=== PATIENT | female | born 1955 | race Caucasian/White ===

== ENCOUNTER 2017-02-13 21:17 | Emergency (ER) | payer OTHER, MEDICAID ==
[~2017-02-13] VITALS: Ht 165.1 cm; Wt 65.0 kg
[~2017-02-13 21:17] MED LIST: 1-ME1LIQ PO; ASPI81TA82 PO; ATEN-102 PO; BACT800T5 PO; BUPR300T PO; CYMB60CA PO; PRAV80 PO
[2017-02-13 21:21] VITALS: BP 122/69; PULSE 112; RESP 24; TEMP 98.3; O2SAT 98
[2017-02-13] MEDS ORDERED: LIPI10TA PO (21:30)
[2017-02-13] MEDS ORDERED: ATEN100T PO (21:30)
[2017-02-13] MEDS ORDERED: LORazepam 2 MG/ML VIAL IV PUSH ONE ×2 (21:30→23:00)
[2017-02-13] MEDS ORDERED: ASPI-110 PO (21:30)
[2017-02-13] MEDS ORDERED: CYMB60CA PO (21:30)
[2017-02-13] MEDS ORDERED: ASPIRIN 81 MG CHEW TAB PO ONE (21:30)
[2017-02-13] MEDS ORDERED: SODIUM CHLORIDE 0.9% FLUSH 10 ML FLUSH IVF PRN (21:30)
[2017-02-13] MEDS ORDERED: SODIUM CHLORID 0.9% 500 ML INJ 500 ML IV ONE (21:30)
[2017-02-13] MEDS ORDERED: SODIUM CHLOR 0.9% 1000 ML INJ 1,000 ML IV ONE ×2 (21:30→22:45)
[2017-02-13] MEDS ORDERED: WELLTAB39 PO (21:30)
[2017-02-13] MEDS ORDERED: AMLO10 PO (21:30)
--- NOTE | 2017-02-13 21:47 | PD ---
HPI Chief Complaint: Cardiac Complaint Time Seen by Provider: 21:21 Travel History International Travel<30 days: No Contact w/Intl Traveler<30days: No Traveled to known affect area: No History of Present Illness HPI 61-year-old female came to the emergency room with history of palpitations after binging on crack cocaine for past couple days. Patient has also been drinking alcohol. She rents a room and says that her landlady does not turn the air-conditioner on. Patient says she is very hot and she has been very depressed. She has been clean for some time and relapsed recently. She was tachycardic upon arrival. She was brought in by EMS and they're twelve-lead EKG was within normal limits as per them. Patient is not complaining of any chest pain. She has been urging to be admitted from the time she came in. She also mentioned to the paramedics that she wants to be admitted since she cannot go back to living at the same place. She is able to give her history appropriately. [facility]LY [facility] Past Medical History Narrative Medical List of her past medical, surgical, social and family history is reviewed from the nursing note. Hx Anticoagulant Therapy: Yes (81 MG ASA) Anxiety: Yes Depression: Yes Cardiovascular Problems: Yes (HTN) High Cholesterol: Yes Diminished Hearing: No Hypertension: Yes Musculoskeletal: Yes (LEG PAIN) Immunizations Current: Yes Tetanus Vaccination: Unknown ?: Not Menopausal: Yes Past Surgical History Abdominal Surgery: Yes Appendectomy: Yes Cardiac Surgery: Yes (aorta BYPASS) Tonsillectomy: Yes Other Surgery: Yes Social History Alcohol Use: Yes Tobacco Use: Yes (1 PPD) Substance Use: Yes Allergies-Medications (Allergen,Severity, Reaction): Coded Allergies: No Known Allergies (Unverified , 02/13/17) Comments No known drug allergies. Reported Meds & Prescriptions Reported Meds & Active Scripts Active Reported Aspirin 81 (Aspirin) 81 Mg Tabdr 81 Mg PO DAILY Wellbutrin Xl 24 HR (Bupropion HCl) 300 Mg Tab 300 Mg PO DAILY Cymbalta DR (Duloxetine HCl) 60 Mg Capdr 60 Mg PO DAILY Lipitor (Atorvastatin Calcium) 10 Mg Tab 10 Mg PO HS Norvasc (Amlodipine Besylate) 10 Mg Tab 10 Mg PO DAILY Atenolol 100 Mg Tab 100 Mg PO DAILY Narrative Medication List of her home medications reviewed from the nursing note. Review of Systems Except as stated in HPI: all other systems reviewed are Neg Physical Exam Narrative GENERAL: Awake, alert, disheveled, anxious, mild distress SKIN: Focused skin assessment warm/dry. HEAD: Atraumatic. Normocephalic. EYES: Pupils equal and round. No scleral icterus. No injection or drainage. ENT: No nasal bleeding or discharge. Mucous membranes pink and moist. NECK: Trachea midline. No JVD. CARDIOVASCULAR: Regular rate and rhythm. Tachycardia. No murmur appreciated. RESPIRATORY: No accessory muscle use. Clear to auscultation. Breath sounds equal bilaterally. GASTROINTESTINAL: Abdomen soft, non-tender, nondistended. Hepatic and splenic margins not palpable. MUSCULOSKELETAL: No obvious deformities. No clubbing. No cyanosis. No edema. NEUROLOGICAL: Awake and alert. No obvious cranial nerve deficits. Motor grossly within normal limits. Normal speech. PSYCHIATRIC: Appropriate mood and affect; insight and judgment normal. Data Data Last Documented VS Vital Signs Date Time Temp Pulse Resp B/P (MAP) Pulse Ox O2 Delivery O2 Flow Rate FiO2 02/14/17 05:06 99 18 108/68 (81) 96 02/13/17 23:12 Room Air 02/13/17 21:21 98.3 Orders Orders Electrocardiogram (02/13/17 21:25) Basic Metabolic Panel (Bmp) (02/13/17 21:25) Ckmb (Isoenzyme) Profile (02/13/17 21:25) Complete Blood Count With Diff (02/13/17 21:25) Magnesium (Mg) (02/13/17 21:25) Prothrombin Time / Inr (Pt) (02/13/17 21:25) Act Partial Throm Time (Ptt) (02/13/17 21:25) Troponin I (02/13/17 21:25) Chest, Single Ap (02/13/17 21:25) Ecg Monitoring (02/13/17 21:25) Bilateral Bp Monitoring (02/13/17 21:25) Iv Access Insert/Monitor (02/13/17 21:25) Oximetry (02/13/17 21:25) Oxygen Administration (02/13/17 21:25) Aspirin Chew (Aspirin Chew) (02/13/17 21:30) Sodium Chloride 0.9% Flush (Ns Flush) (02/13/17 21:30) Sodium Chlorid 0.9% 500 Ml Inj (Ns 500 M (02/13/17 21:30) Lorazepam Inj (Ativan Inj) (02/13/17 21:30) Sodium Chlor 0.9% 1000 Ml Inj (Ns 1000 M (02/13/17 21:30) Sodium Chlor 0.9% 1000 Ml Inj (Ns 1000 M (02/13/17 22:45) Lorazepam Inj (Ativan Inj) (02/13/17 23:00) Potassium Chlor 20 Meq Premix (Kcl 20 Me (02/14/17 01:30) Potassium Chloride (Kcl) (02/14/17 01:30) Troponin I (02/14/17 03:30) Potassium, Serum (K) (02/14/17 03:30) Labs Laboratory Tests Test 02/13/17 21:45 02/14/17 00:15 02/14/17 03:45 White Blood Count 11.6 TH/MM3 Red Blood Count 5.84 MIL/MM3 Hemoglobin 16.7 GM/DL Hematocrit 48.7 % Mean Corpuscular Volume 83.4 FL Mean Corpuscular Hemoglobin 28.5 PG Mean Corpuscular Hemoglobin Concent 34.2 % Red Cell Distribution Width 16.6 % Platelet Count 262 TH/MM3 Mean Platelet Volume 8.0 FL Neutrophils (%) (Auto) 63.7 % Lymphocytes (%) (Auto) 23.5 % Monocytes (%) (Auto) 12.0 % Eosinophils (%) (Auto) 0.5 % Basophils (%) (Auto) 0.3 % Neutrophils # (Auto) 7.4 TH/MM3 Lymphocytes # (Auto) 2.7 TH/MM3 Monocytes # (Auto) 1.4 TH/MM3 Eosinophils # (Auto) 0.1 TH/MM3 Basophils # (Auto) 0.0 TH/MM3 CBC Comment DIFF FINAL Differential Comment Prothrombin Time 10.2 SEC Prothromb Time International Ratio 0.9 RATIO Activated Partial Thromboplast Time 26.4 SEC Blood Urea Nitrogen 7 MG/DL Creatinine 0.91 MG/DL Random Glucose 97 MG/DL Calcium Level 8.5 MG/DL Magnesium Level 1.7 MG/DL Sodium Level 136 MEQ/L Potassium Level 2.6 MEQ/L 5.2 MEQ/L Chloride Level 98 MEQ/L Carbon Dioxide Level 27.2 MEQ/L Anion Gap 11 MEQ/L Estimat Glomerular Filtration Rate 63 ML/MIN Total Creatine Kinase 40 U/L Troponin I 0.02 NG/ML 0.02 NG/ML MDM Medical Decision Making Medical Screen Exam Complete: Yes Emergency Medical Condition: Yes Medical Record Reviewed: Yes Interpretation(s) Twelve-lead EKG was reviewed by me. Normal sinus rhythm, normal axis, nonspecific ST-T wave changes. Heart rate of 101 bpm. Differential Diagnosis Cocaine induced chest pain and palpitations, dehydration, electrolyte abnormality or ACS Narrative Course 10:54 PM patient was given IV fluid bolus and IV Ativan 1 mg. CBC is back and hemoglobin is 15 which is suggestive of hemoconcentration. I've ordered another liter of IV fluid bolus. Fact that she has been binging on crack and not eating or drinking for past few days and living in a hot environment would make her prone to dehydration. Awaiting for the chemistry. Chest x-rays within normal limit. 11 PM I just reassessed the patient and she still continues to be jittery and shaky and tachycardic. I've given another milligram of IV Ativan. 12:23 AM awaiting for the chemistry results. It was a recollect. 4:39 AM patient was hypokalemic and she was given potassium replacement. Repeat potassium and a repeat troponin was sent and they're within normal limits. Patient will be discharged home. Current heart rate is in the 90s. Critical Care Narrative Aggregate critical care time was 45 minutes. Time to perform other separately billable procedures was not included in the critical care time. My time did not include minutes spent treating any other patients simultaneously or on activities that did not directly contribute to the patient's treatment. The services I provided to this patient were to treat and/or prevent clinically significant deterioration that could result in: Moderate to severe Hypokalemia, hypokalemia correction, severe dehydration I provided critical care services requiring my management, as noted below: Chart data review, documentation time, medication orders and management, vital sign assessments/reviewing monitor data, ordering and reviewing lab tests, ordering and interpreting/reviewing x-rays and diagnostic studies, care of the patient and discussion of the patient with the admitting physicians. Procedures EKG Prior to Arrival: Yes Diagnosis Primary Impression: Cocaine abuse, binge pattern Additional Impressions: cocaine-induced palpitations Dehydration Hypokalemia Referrals: Primary Care Physician Additional Instructions: Should not be abusing cocaine or crack cocaine since they are dangerous for your health. Drink lots of fluid to keep himself hydrated. She turned to the ER if the condition worsens or any other new concerns. Follow-up with your primary care. Med/Other Pt SpecificInfo: No Change to Meds Disposition: 01 DISCHARGE HOME Condition: Stable Gregory Vila MD Feb 13, 2017 21:47
[2017-02-13 22:00] VITALS: BP 103/71; PULSE 112; RESP 18; O2SAT 96
--- NOTE | 2017-02-13 22:05 | RADRPT ---
EXAM DATE/TIME: 02/13/2017 21:41 [facility] COMPARISON: No previous studies available for comparison. INDICATIONS : Chest pain. MEDICAL HISTORY : None. SURGICAL HISTORY : None. 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 Previous stent noted in the distal thoracic aorta. Multiple surgical clips overlying upper right chest. Basal atelectasis or scarring. CONCLUSION: 1. Tubular calcification presumably in the descending aneurysmal thoracic aorta with previous stent g raft. No focal consolidation or effusion. Syd Isabel MD on February 13, 2017 at 22:01 Board Certified Radiologist. This report was verified electronically.
[2017-02-13 22:06] LABS: AUTOMATED NEUTROPHIL # 7.4 TH/MM3 (1.8-7.7); BASOPHIL % 0.3 % (0.0-2.0); EOSINOPHIL # 0.1 TH/MM3 (0-0.4); EOSINOPHIL % 0.5 % (0.0-4.0); HEMATOCRIT 48.7 % (35.0-46.0); HEMO FLAGS DIFF FINAL; LYMPH % 23.5 % (9.0-44.0); LYMPHOCYTE # 2.7 TH/MM3 (1.0-4.8); MEAN CELL VOLUME 83.4 FL (80.0-100.0); MEAN CORPUSCULAR HEMOGLOBIN 28.5 PG (27.0-34.0); MEAN CORPUSCULAR HGB CONC 34.2 % (32.0-36.0); NEUT % 63.7 % (16.0-70.0); PLATELET COUNT 262 TH/MM3 (150-450); RED BLOOD COUNT 5.84 MIL/MM3 (4.00-5.30); RED CELL DISTRIBUTION WIDTH 16.6 % (11.6-17.2); WHITE BLOOD COUNT 11.6 TH/MM3 (4.0-11.0)
[2017-02-13 22:17] LABS: APTT (PATIENT) 26.4 SEC (24.3-30.1); INTERNATIONAL NORMALIZED RATIO 0.9 RATIO; PROTHROMBIN TIME - PATIENT 10.2 SEC (9.8-11.6)
[2017-02-13 23:12] VITALS: BP 122/73; PULSE 98; RESP 18; O2SAT 97
[2017-02-14 01:04] LABS: BICARBONATE 27.2 MEQ/L (21.0-32.0); MAGNESIUM 1.7 MG/DL (1.5-2.5)
[2017-02-14 01:08] LABS: POTASSIUM 2.6 MEQ/L (3.5-5.1)
[2017-02-14] MEDS ORDERED: POTASSIUM CHLORIDE 20 MEQ CONTROLLED RELEASE TAB PO ONE (01:30)
[2017-02-14] MEDS ORDERED: POTASSIUM CHLOR 20 MEQ PREMIX 100 ML IV ONE (01:30)
[2017-02-14 04:31] LABS: POTASSIUM 5.2 MEQ/L (3.5-5.1)
[2017-02-14 05:06] VITALS: BP 108/68
--- NOTE | 2017-02-14 14:02 | EKG ---
Date Performed: 02/13/2017 Time Performed: 21:30:43 PTAGE: 61 years EKG: SINUS TACHYCARDIA POSSIBLE LEFT ATRIAL ENLARGEMENT NONSPECIFIC T-WAVE ABNORMALITY ABNORMAL RHYTHM ECG Compared to PREVIOUS TRACING nonspecific T wave changes are now present PREVIOUS TRACIN04/26/2016 01.30 DOCTOR: Storm Alves Interpretating Date/Time 02/14/2017 14:00:14
== END 2017-02-14 05:52 | disposition home or self-care (01) ==
LOC: NEPC 21:17
DX: F14.10 Cocaine abuse, uncomplicated (principal); R00.2 Palpitations; E86.0 Dehydration; E87.6 Hypokalemia; R00.0 Tachycardia, unspecified; I10 Essential (primary) hypertension; F41.9 Anxiety disorder, unspecified; F32.9 Major depressive disorder, single episode, unspecified; E78.00 Pure hypercholesterolemia, unspecified
CPT/HCPCS: 71010; 80048; 82550; 83735; 84132; 84484; 85025; 85610; 85730; 93005; 96361; 96374; 96375; 99291; J2060; J3480; J7030; J7040

== ENCOUNTER 2017-04-18 01:32 | Inpatient (IN) | payer OTHER, MEDICAID, MEDICARE ==
[~2017-04-18] VITALS: Ht 165.1 cm; Wt 67.6 kg
[~2017-04-18 01:32] MED LIST changes: -1-ME1LIQ PO; +AMLO10 PO; +ASPI-110 PO; -ASPI81TA82 PO; -ATEN-102 PO; +ATEN100T PO; -BACT800T5 PO; -BUPR300T PO; +LIPI10TA PO; -PRAV80 PO; +WELLTAB39 PO
[2017-04-18 01:39] VITALS: BP_SYST 124; BP_SYST 81; BP_DIAS 50; BP_DIAS 60; PULSE 20; PULSE 68; RESP 18; TEMP 98; O2SAT 98
[2017-04-18] MEDS ORDERED: IBUP800T23 PO (01:45)
[2017-04-18] MEDS ORDERED: SODIUM CHLOR 0.9% 1000 ML INJ 1,000 ML IV ONE ×3 (02:00→06:30)
[2017-04-18 02:12] LABS: AUTOMATED NEUTROPHIL # 5.1 TH/MM3 (1.8-7.7); BASOPHIL # 0.1 TH/MM3 (0-0.2); BASOPHIL % 0.7 % (0.0-2.0); EOSINOPHIL # 0.3 TH/MM3 (0-0.4); EOSINOPHIL % 3.1 % (0.0-4.0); HEMATOCRIT 47.3 % (35.0-46.0); HEMOGLOBIN 16.1 GM/DL (11.6-15.3); LYMPHOCYTE # 4.2 TH/MM3 (1.0-4.8); MEAN CELL VOLUME 81.4 FL (80.0-100.0); MEAN CORPUSCULAR HEMOGLOBIN 27.7 PG (27.0-34.0); MEAN PLATELET VOLUME 7.6 FL (7.0-11.0); MONO % 11.9 % (0.0-8.0); MONOCYTE # 1.3 TH/MM3 (0-0.9); NEUT % 46.3 % (16.0-70.0); PLATELET COUNT 281 TH/MM3 (150-450); RED CELL DISTRIBUTION WIDTH 15.6 % (11.6-17.2); WHITE BLOOD COUNT 11.1 TH/MM3 (4.0-11.0)
[2017-04-18 02:21] VITALS: BP 110/53; PULSE 63; O2SAT 97
[2017-04-18 02:27] LABS: ALBUMIN 3.7 GM/DL (3.4-5.0); ALT (GPT) 36 U/L (10-53); AST (GOT) 46 U/L (15-37); BICARBONATE 25.1 MEQ/L (21.0-32.0); BLOOD UREA NITROGEN 14 MG/DL (7-18); CALCIUM 8.2 MG/DL (8.5-10.1); CHLORIDE 88 MEQ/L (98-107); CREATININE 0.82 MG/DL (0.50-1.00); GLOMERULAR FILTRATION RATE 71 ML/MIN (>89); GLUCOSE,RANDOM 73 MG/DL (74-106); SODIUM (NA) 125 MEQ/L (136-145)
[2017-04-18 02:29] LABS: ALKALINE PHOSPHATASE 69 U/L (45-117); TOTAL BILIRUBIN ADULT 0.3 MG/DL (0.2-1.0); TOTAL PROTEIN 7.2 GM/DL (6.4-8.2)
[2017-04-18 02:31] LABS: ACETAMINOPHEN LESS THAN 2.0 MCG/ML (10.0-30.0)
[2017-04-18] MEDS ORDERED: FOLIC ACID 1 MG TAB PO ONE (03:30)
[2017-04-18] MEDS ORDERED: POTASSIUM CHLORIDE 10 MEQ CONTROLLED RELEASE TAB PO ONE (03:30)
[2017-04-18] MEDS ORDERED: THIAMINE HCL 100 MG TAB PO ONE (03:30)
--- NOTE | 2017-04-18 04:04 | PD ---
HPI Chief Complaint: Psychiatric Symptoms Time Seen by Provider: 01:52 Travel History International Travel<30 days: No Contact w/Intl Traveler<30days: No Traveled to known affect area: No History of Present Illness HPI Patient is a 61-year-old female presenting to emergency Department under Ibarra act due to suicidal ideations. Patient reports drinking a half a bottle of generic Listerine, 4 beers and one 4 [place] today. Patient states that she wasn' t trying to hurt herself or get drunk she just wanted to pass out because she wasn't happy with her living situation. Patient also admits to using crack cocaine today. She states that she is hungry because she has not eaten in weeks because she doesn't have any food. She then stated that her brother gave her $50 and she used to buy drugs and alcohol. She reports chronic pain in her lower extremities. She states her legs ache, at times the pain as a 7 out of 10. This is also making her feel depressed. She has no other complaints at this time. PFSH Past Medical History Hx Anticoagulant Therapy: Yes (81 MG ASA) Anxiety: Yes Depression: Yes Cardiovascular Problems: Yes (HTN) High Cholesterol: Yes Diminished Hearing: No Hypertension: Yes Musculoskeletal: Yes (LEG PAIN) Immunizations Current: Yes Menopausal: Yes Past Surgical History Abdominal Surgery: Yes Appendectomy: Yes Cardiac Surgery: Yes (aorta BYPASS) Tonsillectomy: Yes Other Surgery: Yes Social History Alcohol Use: Yes Tobacco Use: Yes (1 PPD) Substance Use: Yes Allergies-Medications (Allergen,Severity, Reaction): Coded Allergies: No Known Allergies (Unverified , 02/13/17) Reported Meds & Prescriptions Reported Meds & Active Scripts Active Reported Ibuprofen 800 Mg Tab 800 Mg PO Q8H PRN Wellbutrin Xl 24 HR (Bupropion HCl) 300 Mg Tab 300 Mg PO DAILY Cymbalta DR (Duloxetine HCl) 60 Mg Capdr 60 Mg PO DAILY Lipitor (Atorvastatin Calcium) 10 Mg Tab 10 Mg PO HS Norvasc (Amlodipine Besylate) 10 Mg Tab 10 Mg PO DAILY Atenolol 100 Mg Tab 100 Mg PO DAILY Review of Systems Except as stated in HPI: all other systems reviewed are Neg Psychiatric: Positive: Depression, Suicidal Ideations, Substance Abuse Physical Exam Narrative GENERAL: Disheveled, intoxicated-appearing female. SKIN: Warm and dry. HEAD: Atraumatic. Normocephalic. EYES: Pupils equal and round. No scleral icterus. No injection or drainage. ENT: No nasal bleeding or discharge. Mucous membranes pink and appear dry.. NECK: Trachea midline. No JVD. CARDIOVASCULAR: Regular rate and rhythm. RESPIRATORY: No accessory muscle use. Clear to auscultation. Breath sounds equal bilaterally. GASTROINTESTINAL: Abdomen soft, non-tender, nondistended. Hepatic and splenic margins not palpable. MUSCULOSKELETAL: Extremities without clubbing, cyanosis, or edema. No obvious deformities. NEUROLOGICAL: Awake and alert. No obvious cranial nerve deficits. Motor grossly within normal limits. Five out of 5 muscle strength in the arms and legs. Normal speech. PSYCHIATRIC: Appropriate mood and affect; insight and judgment normal. Data Data Last Documented VS Vital Signs Date Time Temp Pulse Resp B/P (MAP) Pulse Ox O2 Delivery O2 Flow Rate FiO2 04/18/17 02:21 63 110/53 (72) 97 Room Air 04/18/17 01:39 98.0 18 Orders Orders Complete Blood Count With Diff (04/18/17 01:50) Comprehensive Metabolic Panel (04/18/17 01:50) Iv Access Insert/Monitor (04/18/17 01:50) Psych Screen (04/18/17 01:50) Drug Screen, Random Urine (04/18/17 01:50) Alcohol (Ethanol) (04/18/17 01:50) Salicylates (Aspirin) (04/18/17 01:50) Tylenol (Acetaminophen) (04/18/17 01:50) Sodium Chlor 0.9% 1000 Ml Inj (Ns 1000 M (04/18/17 02:00) Thiamine (Vit B1) (Vitamin B1) (04/18/17 03:30) Potassium Chloride (Kcl) (04/18/17 03:30) Sodium Chlor 0.9% 1000 Ml Inj (Ns 1000 M (04/18/17 03:30) Folic Acid (Folate) (04/18/17 03:30) Basic Metabolic Panel (Bmp) (04/18/17 05:18) Sodium Chlor 0.9% 1000 Ml Inj (Ns 1000 M (04/18/17 06:30) Diet Regular Basic (04/18/17 Breakfast) Labs Laboratory Tests Test 04/18/17 02:03 04/18/17 03:16 04/18/17 05:49 White Blood Count 11.1 TH/MM3 Red Blood Count 5.80 MIL/MM3 Hemoglobin 16.1 GM/DL Hematocrit 47.3 % Mean Corpuscular Volume 81.4 FL Mean Corpuscular Hemoglobin 27.7 PG Mean Corpuscular Hemoglobin Concent 34.0 % Red Cell Distribution Width 15.6 % Platelet Count 281 TH/MM3 Mean Platelet Volume 7.6 FL Neutrophils (%) (Auto) 46.3 % Lymphocytes (%) (Auto) 38.0 % Monocytes (%) (Auto) 11.9 % Eosinophils (%) (Auto) 3.1 % Basophils (%) (Auto) 0.7 % Neutrophils # (Auto) 5.1 TH/MM3 Lymphocytes # (Auto) 4.2 TH/MM3 Monocytes # (Auto) 1.3 TH/MM3 Eosinophils # (Auto) 0.3 TH/MM3 Basophils # (Auto) 0.1 TH/MM3 CBC Comment DIFF FINAL Differential Comment Blood Urea Nitrogen 14 MG/DL 12 MG/DL Creatinine 0.82 MG/DL 0.76 MG/DL Random Glucose 73 MG/DL 98 MG/DL Total Protein 7.2 GM/DL Albumin 3.7 GM/DL Calcium Level 8.2 MG/DL 7.9 MG/DL Alkaline Phosphatase 69 U/L Aspartate Amino Transf (AST/SGOT) 46 U/L Alanine Aminotransferase (ALT/SGPT) 36 U/L Total Bilirubin 0.3 MG/DL Sodium Level 125 MEQ/L 128 MEQ/L Potassium Level 3.0 MEQ/L 3.7 MEQ/L Chloride Level 88 MEQ/L 94 MEQ/L Carbon Dioxide Level 25.1 MEQ/L 23.4 MEQ/L Anion Gap 12 MEQ/L 11 MEQ/L Estimat Glomerular Filtration Rate 71 ML/MIN 77 ML/MIN Salicylates Level 3.4 MG/DL Acetaminophen Level LESS THAN 2.0 MCG/ML Ethyl Alcohol Level 286 MG/DL Urine Opiates Screen NEG Urine Barbiturates Screen NEG Urine Amphetamines Screen NEG Urine Benzodiazepines Screen NEG Urine Cocaine Screen POS Urine Cannabinoids Screen NEG MDM Medical Decision Making Medical Screen Exam Complete: Yes Emergency Medical Condition: Yes Interpretation(s) Laboratory Tests Test 04/18/17 02:03 04/18/17 03:16 04/18/17 05:49 White Blood Count 11.1 TH/MM3 Red Blood Count 5.80 MIL/MM3 Hemoglobin 16.1 GM/DL Hematocrit 47.3 % Mean Corpuscular Volume 81.4 FL Mean Corpuscular Hemoglobin 27.7 PG Mean Corpuscular Hemoglobin Concent 34.0 % Red Cell Distribution Width 15.6 % Platelet Count 281 TH/MM3 Mean Platelet Volume 7.6 FL Neutrophils (%) (Auto) 46.3 % Lymphocytes (%) (Auto) 38.0 % Monocytes (%) (Auto) 11.9 % Eosinophils (%) (Auto) 3.1 % Basophils (%) (Auto) 0.7 % Neutrophils # (Auto) 5.1 TH/MM3 Lymphocytes # (Auto) 4.2 TH/MM3 Monocytes # (Auto) 1.3 TH/MM3 Eosinophils # (Auto) 0.3 TH/MM3 Basophils # (Auto) 0.1 TH/MM3 CBC Comment DIFF FINAL Differential Comment Blood Urea Nitrogen 14 MG/DL 12 MG/DL Creatinine 0.82 MG/DL 0.76 MG/DL Random Glucose 73 MG/DL 98 MG/DL Total Protein 7.2 GM/DL Albumin 3.7 GM/DL Calcium Level 8.2 MG/DL 7.9 MG/DL Alkaline Phosphatase 69 U/L Aspartate Amino Transf (AST/SGOT) 46 U/L Alanine Aminotransferase (ALT/SGPT) 36 U/L Total Bilirubin 0.3 MG/DL Sodium Level 125 MEQ/L 128 MEQ/L Potassium Level 3.0 MEQ/L 3.7 MEQ/L Chloride Level 88 MEQ/L 94 MEQ/L Carbon Dioxide Level 25.1 MEQ/L 23.4 MEQ/L Anion Gap 12 MEQ/L 11 MEQ/L Estimat Glomerular Filtration Rate 71 ML/MIN 77 ML/MIN Salicylates Level 3.4 MG/DL Acetaminophen Level LESS THAN 2.0 MCG/ML Ethyl Alcohol Level 286 MG/DL Urine Opiates Screen NEG Urine Barbiturates Screen NEG Urine Amphetamines Screen NEG Urine Benzodiazepines Screen NEG Urine Cocaine Screen POS Urine Cannabinoids Screen NEG Vital Signs Date Time Temp Pulse Resp B/P (MAP) Pulse Ox O2 Delivery O2 Flow Rate FiO2 04/18/17 02:21 63 110/53 (72) 97 Room Air 04/18/17 01:39 98.0 68 18 124/60 (81) 98 Differential Diagnosis Mood disorder versus substance abuse versus suicidal ideations versus metabolic abnormality versus other Narrative Course Patient is a 61-year-old female that presented to the emergency Department under a Ibarra act due to ingesting a half a bottle mouthwash today as well as beer and alcohol, and crack cocaine in an attempt to harm herself and to pass out. She appears intoxicated. Labs ordered and pending. IV fluids, IV access established. Mental health screening discussed with the patient. Psychiatric screen ordered. Labs reviewed, CBC with elevated hemoglobin and hematocrit likely secondary to poor oral fluid intake. Initial chemistry had a sodium level of 125 and potassium level of 3.0, patient was given 2 L of IV fluids as well as 60 mEq of KCl orally. Patient's urine drug screen is positive for cocaine. Alcohol level was 286. Salicylate, acetaminophen levels are normal. BMP was then reassessed after IV fluid bolus, sodium level trended up to 128 and potassium was 3.7. Patient was given an additional liter of IV fluids. She was also given thiamine and folate acid. Patient has been resting comfortably. Patient's vital signs remained stable. She is medically clear for psychiatric evaluation at this time. Diagnosis Primary Impression: Medical clearance for psychiatric admission Additional Impressions: Acute alcohol intoxication Qualified Codes: F10.929 - Alcohol use, unspecified with intoxication, unspecified Substance abuse Dehydration Condition: Stable Gricelda Metz [employer] Apr 18, 2017 04:04
[2017-04-18 06:16] LABS: BICARBONATE 23.4 MEQ/L (21.0-32.0); CALCIUM 7.9 MG/DL (8.5-10.1); CREATININE 0.76 MG/DL (0.50-1.00)
[2017-04-18 09:39] VITALS: BP 96/63; PULSE 74; RESP 16; O2SAT 98
[2017-04-18 12:25] VITALS: BP 147/65; PULSE 79; RESP 16; O2SAT 98
[2017-04-18 14:17] VITALS: BP 166/70; PULSE 70; RESP 17; TEMP 97.9; O2SAT 99
[2017-04-18 18:00] VITALS: BP 146/65; PULSE 83; RESP 18
[2017-04-19 02:06] VITALS: BP 146/80; PULSE 74; RESP 15; TEMP 97.9; O2SAT 96
[2017-04-19] MEDS ORDERED: ALUMINUM/MAGNESIUM/SIMETH 30 ML CUP PO PRN (14:15)
[2017-04-19] MEDS ORDERED: MAGNESIUM HYDROXIDE SUSP 30 ML CUP PO PRN (14:15)
[2017-04-19] MEDS ORDERED: FLUMAZENIL 0.5 MG/5 ML VIAL IV PUSH PRN (14:15)
[2017-04-19] MEDS ORDERED: LORazepam 2 MG/ML VIAL IV PUSH PRN ×4 (14:15)
[2017-04-19] MEDS ORDERED: BENZTROPINE MESYLATE 1 MG TAB PO PRN (14:15)
[2017-04-19] MEDS ORDERED: BENZTROPINE MESYLATE 2 MG/2 ML VIAL IM PRN (14:15)
[2017-04-19] MEDS ORDERED: LORazepam 2 MG TAB PO PRN (14:15)
--- NOTE | 2017-04-19 14:23 | HHI.HP ---
Provisional Diagnosis Admission Date 04/19/2017 [place] I. 1. Major depressive disorder, recurrent severe without psychotic features 2. Cocaine abuse 3. Alcohol abuse [place] II. Deferred Certification of Person's Competence To Provide Express and Informed Consent I have personally examined Minna Dave , a person being served at [facility] on, Apr 19, 2017 14:10. Express and informed consent means consent voluntarily given in writing, by a competent person, after sufficient explanation and disclosure of the subject matter involved to enable the person to make a knowing and willful decision without any element of force, fraud, deceit, duress, or other form of constraint or coercion. This person is 18 years of age or older, is not now known to be incompetent to consent to treatment with a guardian advocate, and does not have a health care surrogate or proxy currently making medical treatment decisions. I have found this person to be one of the following: [x] Competent to provide express and informed consent, as defined above, for voluntary admission to this facility and is competent to provide express and informed consent for treatment. He/she has the consistent capacity to make well reasoned, willful, and knowing decisions concerning his or her medical or mental health treatment. The person fully and consistently understands the purpose of the admission for examination/placement and is fully capable of personally exercising all rights assured [place] Incompetent to provide express and informed consent to voluntary admission, and this is incompetent to provide express and informed consent to treatment. The person must be transferred to involuntary status and a petition for a guardian advocate filed with the Circuit Court. [] Refusing to provide express and informed consent to voluntary admission but is competent to provide express and informed consent for treatment. The person must be discharged or transferred to involuntary status. Form shall be completed within 24 hours of a person's arrival at the receiving facility and filed in the clinical record of each person: 1. Admitted on a voluntary basis 2. Permitted to provide express and informed consent to his/her own treatment 3. Allowed to transfer from involuntary to voluntary status 4. Prior to permitting a person to consent to his or her own treatment after having been previously found incompetent to consent to treatment. History of Present Illness Capacity: Has Capacity HPI Ms. Dave is a 61-year-old female with a reported history of depression and anxiety as well as ADHD who presents under a Ibarra act by law enforcement alleging that the patient was observed by her roommate consuming pills and mouthwash. Patient's urine toxicology was positive for cocaine on presentation here and her alcohol level was 286. Reviewing the electronic medical record, the only previous psychiatric contacts that I see within our system is an evaluation by the psychiatric nurse practitioner in the ED about 1 year ago. Patient seen and examined. Chart reviewed. Case discussed with nurse in the J- pod. On my examination today, the patient presents as quite disheveled and appears older than stated age. She says that she has been feeling increasingly depressed because of her medical issues and "thinking more and more about how to kill myself." She now denies that the presenting overdose was suicidal in nature, saying that she just took an extra atenolol because she was feeling quite nervous, but she does endorse ongoing suicidal ideation with plans to walk into the ocean. She is extremely tearful and dysphoric. She repeatedly says that she cannot live like this anymore. Sleep is poor. Appetite is poor. She is anhedonic. Low energy. Hopelessness present. No hypomanic or manic symptoms. Denies audiovisual hallucinations. No delusional material. Somewhat medication seeking for stimulants. Remainder of the psychiatric ROS is negative. No acute physical complaints. Past psychiatric history: Patient reports previous psychiatric diagnoses as noted above. Formerly followed with Dr. Potts but is not currently under any psychiatric care. Denies any history of psychiatric admissions or suicide attempts. Review of Systems ROS Limitations: Poor Historian Except as stated in HPI: all other systems reviewed are Neg Past Psych History Psychological trauma history No reported trauma history to me Violence risk - others (6 mos) Lower imminent risk. No homicidal ideation. No known history of violence. Violence risk - self (6 mos) Concern for elevated risk. Depressed with ongoing suicidal ideation. Substance Abuse History Drugs/Alcohol past 12 months Patient says that she has been in and out of chemical dependency treatment since the . She reports that she has been drinking 4-5 beers daily and in the last 2 days has been drinking a couple of bottles of mouthwash a day. She denies any history of DTs. One previous withdrawal seizure. She insists that she is using cocaine only for the energy. She has been in AA in the past. No current reported withdrawal symptoms. Past Family Social History Coded Allergies: No Known Allergies (Unverified , 02/13/17) Past Medical History See electronic medical record Reported Medications Ibuprofen (Ibuprofen) 800 Mg Tab, 800 MG PO Q8H Y for PAIN SCALE 5 TO 10, TAB 0 Refills 04/18/17 Bupropion HCl ER 24 HR (Wellbutrin Xl 24 HR) 300 Mg Tab, 300 MG PO DAILY for Control Depression, TAB 0 Refills 02/13/[address] (Cymbalta DR) 60 Mg Capdr, 60 MG PO BID, #30 CAP 0 Refills 02/13/17 Atorvastatin (Lipitor) 10 Mg Tab, 10 MG PO HS for Cholesterol Management, #30 TAB 0 Refills 02/13/17 Amlodipine (Norvasc) 10 Mg Tab, 10 MG PO DAILY for Blood Pressure Management, # 30 TAB 0 Refills 02/13/17 Atenolol (Atenolol) 100 Mg Tab, 100 MG PO DAILY for Blood Pressure Management, # 30 TAB 0 Refills 02/13/17 Family Psych History Patient believes that her brother may have some sort of mental illness. Social History High school educated. On disability. Earns about $750 a month. Single with no children. Denies any history. Denies legal history. Denies access to guns or firearms. She is a Yazdanism but takes pains to explain that this is not protective and she would still kill herself despite her scientologist beliefs. Patient's Strengths (min. 2) In a monitored setting. Verbally fluent. Physical Exam Physical exam completed by ED provider. On my examination today, the patient appears to be in no acute physical distress. No motor abnormalities noted. Labs and vitals reviewed: Vital Signs Vital Signs Date Time Temp Pulse Resp B/P (MAP) Pulse Ox O2 Delivery O2 Flow Rate FiO2 04/19/17 02:06 97.9 74 15 146/80 (102) 96 04/18/17 18:00 Room Air Lab Results Item Value Date Time White Blood Count 11.1 TH/MM3 H 04/18/17 0203 Hemoglobin 16.1 GM/DL H 04/18/17 0203 Platelet Count 281 TH/MM3 04/18/17 0203 Sodium Level 128 MEQ/L L 04/18/17 0549 Potassium Level 3.7 MEQ/L 04/18/17 0549 Chloride Level 94 MEQ/L L 04/18/17 0549 Carbon Dioxide Level 23.4 MEQ/L 04/18/17 0549 Blood Urea Nitrogen 12 MG/DL 04/18/17 0549 Creatinine 0.76 MG/DL 04/18/17 0549 Estimat Glomerular Filtration Rate 77 ML/MIN L 04/18/17 0549 Urine Cocaine Screen POS H 04/18/17 0316 Ethyl Alcohol Level 286 MG/DL H 04/18/17 0203 Hyponatremia noted. Mild leukocytosis noted. Anemia noted. Toxicological results noted. Mental Status Examination Appearance: Disheveled Consciousness: Alert Orientation: x4 Motor Activity: Other (tongue darting but the patient reports that she is missing her lower dentures. Mild resting hand tremor. No other stigmata of alcohol withdrawal.) Speech: Speech impediment Language: Adequate Fund of Knowledge: Adequate Attention and Concentration: Adequate Memory: Unremarkable Mood: Other (depressed) Affect: Other (restricted) Thought Process & Associations: Goal directed, Circumstantial Hallucination Type: None Delusion Type: None Suicidal Ideation: Yes Suicidal Plan: Yes Suicidal Intention: Yes (no reported urge to hurt herself on the inpatient psychiatric unit) Homicidal Ideation: No Homicidal Plan: No Homicidal Intention: No Insight: Fair Judgment: Poor Assessment & Plan Problem List: (1) Major depressive disorder, recurrent severe without psychotic features ICD Codes: F33.2 - Major depressive disorder, recurrent severe without psychotic features (2) Cocaine abuse ICD Codes: F14.10 - Cocaine abuse, uncomplicated (3) Alcohol abuse ICD Codes: F10.10 - Alcohol abuse, uncomplicated Assessment & Plan 61-year-old female with psychiatric history as detailed above who presents under a Ibarra act. On my examination today, the patient presents as extremely dysphoric and reports ongoing suicidal ideation. Possibly some degree of secondary gain as the patient is medication seeking for stimulants and seems quite intent on gaining admission to the inpatient psychiatric unit. Her long-term goal is placement, such as in an assisted living facility. Nonetheless, the patient remains quite depressed and there is the suicidal ideation. I will plan to admit the patient to the inpatient psychiatric unit for safety, observation and stabilization. Admit inpatient. Voluntary status. Initiate Lexapro 10 mg daily for mood to replace her outpatient psychotropic regimen as this is reportedly not working for her. I will schedule the Lexapro to start tomorrow and not today to ensure that hyponatremia improves prior to first dose as SSRIs can worsen hyponatremia in some patients. Atarax as needed for anxiety, Cogentin as needed for EPS, Benadryl as needed for sleep. CIWA scale with Ativan for the management of any withdrawal. Thiamine and folate. Seizure and fall precautions. PT/OT. Consult to the hospitalist. Continue patient's antihypertensives and statin. Further adjustments as per the hospitalist. Check CBC, BMP, TSH, hemoglobin A1c and lipid panel in the morning. Vitals every shift. Counselor to see. Disposition planning. Estimated length of stay: 5-7 days. Discharge Planning Pending stabilization. Request HC Surrog/Guard Advoc?: No Storm Muñoz MD Apr 19, 2017 14:23
[2017-04-19] MEDS ORDERED: cloNIDine HCL 0.1 MG TAB PO PRN (14:45)
[2017-04-19 14:59] VITALS: BP 146/80; PULSE 74; RESP 15; O2SAT 98
[2017-04-19 15:00] VITALS: BP 183/82; PULSE 76; RESP 18; TEMP 97.5; O2SAT 98
--- NOTE | 2017-04-19 15:42 | PD.CONS ---
HPI Service [facility] Hospitalists Consult Requested By Dr. Muñoz Reason for Consult Hyponatremia and leukocytosis Primary Care Physician Marquise Mccauley M.D. Diagnoses: (1) Substance abuse (2) Major depressive disorder, recurrent severe without psychotic features (3) Peripheral vascular disease (4) Hypertension History of Present Illness Written by Nita Brown, acting as scribe for Dr. Marte on 04/19/17 at 15:23. Ms. Dave is a 61-year-old female with a known medical history of PVD with claudication, substance abuse and major depressive disorder who presented to the ED under Ibarra Act with increasing depression and consuming pills and mouthwash. Psychiatrist has consulted hospitalist team for medical management. Patient seen and examined in psych unit, sitting in chair comfortably. Patient states she has an extensive history of PVD with claudication and has underwent multiple surgeries for her disease. Patient is from [place] and last saw the cardiovascular surgeon in 2013 who at the time had discontinued her Plavix and placed her on a baby aspirin, which the patient has not been taking. Reportedly patient has chronic back pain along with bilateral lower extremity pain with walking. She states she is able to walk 15-20 feet and then has to rest for a few minutes until pain is relieved. Denies any recent illness including fever, chills, chest pain, headache, lightheadedness, cough, shortness of breath, abdominal pain, n/v/d or dysuria. Review of Systems Constitutional: DENIES: Fatigue, Fever, Chills Endocrine: DENIES: Polydipsia Respiratory: DENIES: Cough, Sputum production Cardiovascular: DENIES: Chest pain Gastrointestinal: DENIES: Abdominal pain, Constipation, Diarrhea, Nausea Musculoskeletal: COMPLAINS OF: Joint pain Psychiatric: COMPLAINS OF: Anxiety, Mood changes, Depression Except as stated in HPI: all other systems reviewed are Neg Past Family Social History Allergies: Coded Allergies: No Known Allergies (Unverified , 02/13/17) Past Medical History PVD with claudication Hypertension Major depression Chronic back pain Tobacco abuse Crack cocaine abuse Possible history of alcohol abuse Past Surgical History Tonsillectomy Tubal ligation Appendectomy Per patient report, 1995 patient underwent a bilateral aortic/ femoral bypass 2007 Placement of abdominal stents 2012 Revision of bilateral aortic/femoral bypass 2014 Another abdominal stent placed. Reported Medications Reported Meds & Active Scripts Active Reported Ibuprofen 800 Mg Tab 800 Mg PO Q8H PRN Wellbutrin Xl 24 HR (Bupropion HCl) 300 Mg Tab 300 Mg PO DAILY Cymbalta DR (Duloxetine HCl) 60 Mg Capdr 60 Mg PO BID Lipitor (Atorvastatin Calcium) 10 Mg Tab 10 Mg PO HS Norvasc (Amlodipine Besylate) 10 Mg Tab 10 Mg PO DAILY Atenolol 100 Mg Tab 100 Mg PO DAILY Active Ordered Medications Current Medications Medications (Trade) Dose Ordered Sig/Nunu Route Start Time Stop Time Status Last Admin (Benadryl) 50 mg HS PRN PO 04/19/17 14:15 (Tylenol) 650 mg Q4H PRN PO 04/19/17 14:15 (Milk Of Magnesia Liq) 30 ml DAILY PRN PO 04/19/17 14:15 (Mag-Al Plus Susp Liq) 30 ml Q6H PRN PO 04/19/17 14:15 (Habitrol 21 Mg Patch.24 Hr) 1 patch DAILY T-DERMAL 04/20/17 09:00 (Atarax) 50 mg Q6H PRN PO 04/19/17 14:15 (Cogentin) 1 mg Q12H PRN PO 04/19/17 14:15 (Cogentin Inj) 1 mg Q12H PRN IM 04/19/17 14:15 (Romazicon Inj) 0.2 mg Q1M PRN IV PUSH 04/19/17 14:15 (Ativan) 1 mg Q4H PRN PO 04/19/17 14:15 (Ativan Inj) 1 mg Q4H PRN IV PUSH 04/19/17 14:15 (Ativan) 2 mg Q2H PRN PO 04/19/17 14:15 (Ativan Inj) 2 mg Q2H PRN IV PUSH 04/19/17 14:15 (Ativan Inj) 2 mg Q1H PRN IV PUSH 04/19/17 14:15 (Ativan Inj) 2 mg Q15M PRN IV PUSH 04/19/17 14:15 Miscellaneous Information 1 DAILY T-DERMAL 04/20/17 09:00 (Vitamin B1) 100 mg DAILY PO 04/20/17 09:00 (Folate) 1 mg DAILY PO 04/20/17 09:00 (Lexapro) 10 mg DAILY PO 04/20/17 09:00 (Norvasc) 10 mg DAILY PO 04/20/17 09:00 (Tenormin) 100 mg DAILY PO 04/20/17 09:00 (Lipitor) 10 mg HS PO 04/19/17 21:00 (Catapres) 0.1 mg Q6H PRN PO 04/19/17 14:45 Family History Patient is not aware of any significant family medical history. Social History Does admit to current tobacco use, 1 ppd cigarettes. Does admit to alcohol use, last drink 3 days ago. Does admit to crack cocaine use, last use was 3 days ago. Physical Exam Vital Signs Vital Signs Date Time Temp Pulse Resp B/P (MAP) Pulse Ox O2 Delivery O2 Flow Rate FiO2 04/19/17 15:02 04/19/17 14:59 74 15 146/80 (102) 98 Room Air 04/19/17 02:06 97.9 74 15 146/80 (102) 96 04/18/17 18:00 83 18 146/65 (92) Room Air Physical Exam GENERAL: This is a well-nourished, disheveled female patient sitting up in chair in no apparent distress. SKIN: No rashes, ecchymoses or lesions. Warm and dry. HEAD: Atraumatic. Normocephalic. Pupils equal round and reactive. Extraocular motions intact. No scleral icterus. No injection or drainage. Nose without bleeding. Airway patent. NECK: Trachea midline. No JVD. Supple. Bilateral carotid bruits present. CARDIOVASCULAR: Regular rate and rhythm without gallops, or rubs. 3/6 systolic aortic murmur present with radiation to neck RESPIRATORY: Clear to auscultation. Breath sounds equal bilaterally. No wheezes , rales, or rhonchi. GASTROINTESTINAL: Abdomen soft, non-tender, nondistended No guarding. MUSCULOSKELETAL: Extremities without clubbing, cyanosis, or edema. No joint tenderness, effusion, or edema noted. NEUROLOGICAL: Awake and alert. Cranial nerves II through XII intact. Motor and sensory grossly within normal limits. Five out of 5 muscle strength in all muscle groups. Normal speech. Result Diagram: 04/18/17 0203 04/18/17 0549 Assessment and Plan Assessment and Plan Ms. Dave is a 61-year-old female with a known medical history of PVD with claudication, substance abuse and major depressive disorder who presented to the ED under [place]bar[place] Act with increasing depression and consuming pills and mouthwash. Psychiatrist has consulted hospitalist team for medical management. Major depressive disorder - Management per psychiatry team. Continue current treatment. Hypertension, chronic: BP elevated on admission. Now controlled. Continue Norvasc and Atenolol. Clonidine PO PRN available. Monitor BP trends. Claudication secondary to PVD history: Obtain records from previous treatment plan and surgeries in [place]. Supportive care. Start on aspirin. Alcohol, tobacco and cocaine abuse: Encouraged cessation, counseled on negative effect on health and disease process. Continue Nicotine patch. Placed on CIWA protocol and monitor for withdrawals. Seizure and fall precautions. Continue thiamine and multivitamin. Hyperlipidemia: Continue Atorvastatin. Will check lipid panel. Probably increase dose if elevated. Follow. Hyponatremia: NA 128.possibly due to alcoholism Encourage fluids. Follow BMP. DVT Prophylaxis: Ambulation Thank you for this consultation. Will follow with you. This note was transcribed by deyvi [LISA]. I, Dr. Ebony Marte personally performed the history, physical exam, and medical decision making; and confirmed the accuracy of the information in the transcribed note. Authenticated by Dr. Ebony Marte on 04/19/17 at 16:02. Nita Brown Apr 19, 2017 15:42 Ebony Marte MD Apr 19, 2017 16:02
[2017-04-19 16:00] VITALS: BP 163/76; PULSE 86; RESP 18; TEMP 98.1; O2SAT 95
[2017-04-19] MEDS: LORazepam 1 MG TAB PO PRN (17:24)
[2017-04-19] MEDS: ASPIRIN 81 MG CHEW TAB CHEW SCH (17:27)
[2017-04-19] MEDS: ATORVASTATIN 10 MG TAB PO SCH (21:14)
[2017-04-20] MEDS: diphenhydrAMINE HCL 50 MG CAP PO PRN (01:18)
[2017-04-20] MEDS: hydrOXYzine HCL 50 MG TAB PO PRN (01:22)
[2017-04-20 06:00] VITALS: BP 173/66; PULSE 100; RESP 18; TEMP 98; O2SAT 99
[2017-04-20] MEDS: REMOVE OLD PATCH T-DERMAL SCH (09:00)
[2017-04-20] MEDS: ATENOLOL 100 MG TAB PO SCH (09:00)
[2017-04-20] MEDS: FOLIC ACID 1 MG TAB PO SCH (09:02)
[2017-04-20] MEDS: ASPIRIN 81 MG CHEW TAB CHEW SCH (09:02)
[2017-04-20] MEDS: THIAMINE HCL 100 MG TAB PO SCH (09:02)
[2017-04-20] MEDS: ESCITALOPRAM OXALATE 10 MG TAB PO SCH (09:02)
[2017-04-20] MEDS: NICOTINE 21 MG/24 HR PATCH T-DERMAL SCH (09:06)
[2017-04-20] MEDS: LORazepam 1 MG TAB PO PRN ×2 (09:40→16:44)
[2017-04-20 11:53] LABS: AUTOMATED NEUTROPHIL # 4.1 TH/MM3 (1.8-7.7); BASOPHIL # 0.1 TH/MM3 (0-0.2); BASOPHIL % 0.8 % (0.0-2.0); EOSINOPHIL # 0.2 TH/MM3 (0-0.4); EOSINOPHIL % 2.3 % (0.0-4.0); HEMATOCRIT 43.8 % (35.0-46.0); HEMOGLOBIN 15.1 GM/DL (11.6-15.3); LYMPH % 36.6 % (9.0-44.0); LYMPHOCYTE # 2.9 TH/MM3 (1.0-4.8); MEAN CELL VOLUME 83.2 FL (80.0-100.0); MEAN CORPUSCULAR HEMOGLOBIN 28.6 PG (27.0-34.0); MEAN CORPUSCULAR HGB CONC 34.4 % (32.0-36.0); MEAN PLATELET VOLUME 8.3 FL (7.0-11.0); MONOCYTE # 0.6 TH/MM3 (0-0.9); NEUT % 52.3 % (16.0-70.0); PLATELET COUNT 213 TH/MM3 (150-450); RED BLOOD COUNT 5.27 MIL/MM3 (4.00-5.30); RED CELL DISTRIBUTION WIDTH 15.9 % (11.6-17.2); WHITE BLOOD COUNT 7.8 TH/MM3 (4.0-11.0)
--- NOTE | 2017-04-20 11:58 | HHI.PYPN ---
Subjective Remarks Pt seen and discussed with staff. Pt had a difficult night with poor sleep. She has been quite and withdrawn on unit. She remains dysphoric. She is compliant with care and medications. Decreased SI. Mental Status Examination Appearance: Disheveled Consciousness: Alert Orientation: x4 Motor Activity: Other (tongue darting but the patient reports that she is missing her lower dentures. Mild resting hand tremor. No other stigmata of alcohol withdrawal.) Speech: Speech impediment Language: Adequate Fund of Knowledge: Adequate Attention and Concentration: Adequate Memory: Unremarkable Mood: Other (depressed) Affect: Other (restricted) Thought Process & Associations: Goal directed, Circumstantial Thought Content: Appropriate Hallucination Type: None Delusion Type: None Suicidal Ideation: Yes (decreased) Suicidal Plan: No Suicidal Intention: No (no reported urge to hurt herself on the inpatient psychiatric unit) Homicidal Ideation: No Homicidal Plan: No Homicidal Intention: No Insight: Fair Judgment: Poor Results Labs Test 04/20/17 11:08 White Blood Count 7.8 TH/MM3 Red Blood Count 5.27 MIL/MM3 Hemoglobin 15.1 GM/DL Hematocrit 43.8 % Mean Corpuscular Volume 83.2 FL Mean Corpuscular Hemoglobin 28.6 PG Mean Corpuscular Hemoglobin Concent 34.4 % Red Cell Distribution Width 15.9 % Platelet Count 213 TH/MM3 Mean Platelet Volume 8.3 FL Neutrophils (%) (Auto) 52.3 % Lymphocytes (%) (Auto) 36.6 % Monocytes (%) (Auto) 8.0 % Eosinophils (%) (Auto) 2.3 % Basophils (%) (Auto) 0.8 % Neutrophils # (Auto) 4.1 TH/MM3 Lymphocytes # (Auto) 2.9 TH/MM3 Monocytes # (Auto) 0.6 TH/MM3 Eosinophils # (Auto) 0.2 TH/MM3 Basophils # (Auto) 0.1 TH/MM3 CBC Comment DIFF FINAL Differential Comment Vitals/IOs Vital Signs Date Time Temp Pulse Resp B/P (MAP) Pulse Ox O2 Delivery O2 Flow Rate FiO2 04/20/17 06:00 98.0 100 18 173/66 (101) 99 04/19/17 14:59 Room Air Intake and Output 04/20/17 04/20/17 04/21/17 08:00 16:00 00:00 Intake Total 240 ml Balance 240 ml Assessment & Plan Problem List: (1) Major depressive disorder, recurrent severe without psychotic features ICD Codes: F33.2 - Major depressive disorder, recurrent severe without psychotic features (2) Cocaine abuse ICD Codes: F14.10 - Cocaine abuse, uncomplicated (3) Alcohol abuse ICD Codes: F10.10 - Alcohol abuse, uncomplicated Assessment & Plan Continue current tx plan. Estimated LOS: days Justification for Cont. Inpt. impairments in safety Request HC Surrog/Guard Advoc?: Kari Terry MD Apr 20, 2017 11:58
[2017-04-20 12:30] LABS: BICARBONATE 28.2 MEQ/L (21.0-32.0); BLOOD UREA NITROGEN 12 MG/DL (7-18); CALCIUM 9.2 MG/DL (8.5-10.1); CHLORIDE 96 MEQ/L (98-107); CHOLESTEROL 174 MG/DL (120-200); CREATININE 0.71 MG/DL (0.50-1.00); GLOMERULAR FILTRATION RATE 83 ML/MIN (>89); GLUCOSE,RANDOM 74 MG/DL (74-106); SODIUM (NA) 132 MEQ/L (136-145); TRIGLYCERIDES 290 MG/DL (42-150)
[2017-04-20] MEDS: LISINOPRIL 5 MG TAB PO SCH (12:30)
[2017-04-20 12:36] LABS: CHOLESTEROL/ HDL RATIO 3.14 RATIO; HDL CHOLESTEROL 55.4 MG/DL (40.0-60.0); LDL CHOLESTEROL 61 MG/DL (0-99)
[2017-04-20 14:03] LABS: HEMOGLOBIN A1C 5.4 % (4.3-6.0)
--- NOTE | 2017-04-20 16:44 | HHI.PR ---
Subjective Remarks STABLE , NO HEADACHE OR CP Objective Vitals Vital Signs Date Time Temp Pulse Resp B/P (MAP) Pulse Ox O2 Delivery O2 Flow Rate FiO2 04/20/17 06:00 98.0 100 18 173/66 (101) 99 I/O 04/19/17 04/19/17 04/19/17 04/20/17 04/20/17 04/20/17 07:00 15:00 23:00 07:00 15:00 23:00 Intake Total 600 ml 240 ml 720 ml Balance 600 ml 240 ml 720 ml Intake Oral 600 ml 240 ml 720 ml # Voids 2 2 # Bowel Movements 1 Result Diagram: 04/20/17 1108 04/20/17 1108 Objective Remarks GENERAL: This is a well-nourished, disheveled female patient sitting up in chair in no apparent distress. SKIN: No rashes, ecchymoses or lesions. Warm and dry. HEAD: Atraumatic. Normocephalic. Pupils equal round and reactive. Extraocular motions intact. No scleral icterus. No injection or drainage. Nose without bleeding. Airway patent. NECK: Trachea midline. No JVD. Supple. Bilateral carotid bruits present. CARDIOVASCULAR: Regular rate and rhythm without gallops, or rubs. 3/6 systolic aortic murmur present with radiation to neck RESPIRATORY: Clear to auscultation. Breath sounds equal bilaterally. No wheezes , rales, or rhonchi. GASTROINTESTINAL: Abdomen soft, non-tender, nondistended No guarding. MUSCULOSKELETAL: Extremities without clubbing, cyanosis, or edema. No joint tenderness, effusion, or edema noted. NEUROLOGICAL: Awake and alert. Cranial nerves II through XII intact. Motor and sensory grossly within normal limits. Five out of 5 muscle strength in all muscle groups. Normal speech. A/P Problem List: (1) Substance abuse ICD Code: F19.10 - Other psychoactive substance abuse, uncomplicated Status: Acute (2) Major depressive disorder, recurrent severe without psychotic features ICD Code: F33.2 - Major depressive disorder, recurrent severe without psychotic features (3) Peripheral vascular disease ICD Code: I73.9 - Peripheral vascular disease, unspecified (4) Hypertension ICD Code: I10 - Essential (primary) hypertension Assessment and Plan Ms. Dave is a 61-year-old female with a known medical history of PVD with claudication, substance abuse and major depressive disorder who presented to the ED under [place] Act with increasing depression and consuming pills and mouthwash. Psychiatrist has consulted hospitalist team for medical management. Major depressive disorder - Management per psychiatry team. Continue current treatment. Hypertension, chronic: BP elevated on admission. Now controlled. Continue Norvasc and Atenolol. Clonidine PO PRN available. Monitor BP trends. Add lisinopril 5 mg daily for further BP optimization Claudication secondary to PVD history: Obtain records from previous treatment plan and surgeries in [place]. Supportive care. Start on aspirin. Alcohol, tobacco and cocaine abuse: Encouraged cessation, counseled on negative effect on health and disease process. Continue Nicotine patch. Placed on CIWA protocol and monitor for withdrawals. Seizure and fall precautions. Continue thiamine and multivitamin. Hyperlipidemia: Continue Atorvastatin. lipid panel acceptable, HDL 55, LDL 61, TG 290. Probably increase dose if elevated. Follow. Hyponatremia: .possibly due to alcoholism Encourage fluids. Follow BMP. DVT Prophylaxis: Ambulation Ebony Marte MD Apr 20, 2017 16:44
[2017-04-20 17:30] VITALS: BP 148/75; PULSE 75; RESP 16; TEMP 97.9
[2017-04-20] MEDS: ATORVASTATIN 10 MG TAB PO SCH (21:45)
[2017-04-21] MEDS: LORazepam 1 MG TAB PO PRN ×4 (00:12→21:41)
[2017-04-21] MEDS: hydrOXYzine HCL 50 MG TAB PO PRN ×3 (03:26→21:41)
[2017-04-21 06:04] VITALS: BP 146/79; PULSE 76; RESP 16; TEMP 97.9; O2SAT 99
[2017-04-21] MEDS: ASPIRIN 81 MG CHEW TAB CHEW SCH (08:09)
[2017-04-21] MEDS: ESCITALOPRAM OXALATE 10 MG TAB PO SCH (08:09)
[2017-04-21] MEDS: THIAMINE HCL 100 MG TAB PO SCH (08:09)
[2017-04-21] MEDS: NICOTINE 21 MG/24 HR PATCH T-DERMAL SCH (08:10)
[2017-04-21] MEDS: LISINOPRIL 5 MG TAB PO SCH (08:10)
[2017-04-21] MEDS: ATENOLOL 100 MG TAB PO SCH (08:10)
[2017-04-21] MEDS: FOLIC ACID 1 MG TAB PO SCH (08:10)
[2017-04-21] MEDS: REMOVE OLD PATCH T-DERMAL SCH (08:10)
--- NOTE | 2017-04-21 13:01 | HHI.PYPN ---
Subjective Remarks Patient is 62-year-old woman, currently homeless, unemployed, with a past psychiatric history of depression, anxiety, alcohol use disorder, no previous psychiatric hospitalizations or suicide attempts who was brought under Ibarra act for depression since ideations with blood alcohol level being 286 and positive for cocaine on recent urine toxicology. Patient seen today for follow- up, chart review. Patient states "I can't take care of myself, I have PVD". Patient states that she has been having worsening depression since November after she had stopped the having outpatient follow-up as her psychiatrist had retired as well as being homeless since then and having been "Place to place to live". Patient stated that she had been drinking heavily and using cocaine twice since then. Patient denies any suicidal ideations at this time but did report having some difficulty with sleep. Patient states being interested in engaging in rehabilitation program. Collateral contact: Taiwo Khan (friend) [phone]; Abelino Dave (brother) lives in [place]. Review of Systems Except as stated in HPI: all other systems reviewed are Neg Mental Status Examination Appearance: Disheveled Consciousness: Alert Orientation: x4 Motor Activity: Normal gait Speech: Speech impediment Language: Adequate Fund of Knowledge: Adequate Attention and Concentration: Adequate Memory: Unremarkable Mood: Sad, Other (depressed) Affect: Other (restricted) Thought Process & Associations: Goal directed, Linear Thought Content: Appropriate Hallucination Type: None Delusion Type: None Suicidal Ideation: Yes (decreased) Suicidal Plan: No Suicidal Intention: No Homicidal Ideation: No Homicidal Plan: No Homicidal Intention: No Insight: Fair Judgment: Poor Results Vitals/IOs Vital Signs Date Time Temp Pulse Resp B/P (MAP) Pulse Ox O2 Delivery O2 Flow Rate FiO2 04/21/17 06:04 97.9 76 16 146/79 (101) 99 04/19/17 14:59 Room Air Intake and Output 04/21/17 04/21/17 04/22/17 08:00 16:00 00:00 Intake Total 480 ml Balance 480 ml Assessment & Plan Problem List: (1) Major depressive disorder, recurrent severe without psychotic features ICD Codes: F33.2 - Major depressive disorder, recurrent severe without psychotic features (2) Cocaine abuse ICD Codes: F14.10 - Cocaine abuse, uncomplicated (3) Alcohol abuse ICD Codes: F10.10 - Alcohol abuse, uncomplicated Assessment & Plan Patient this time continues to be noted to be depressed but having denied any suicidal ideations today. Continue escitalopram to his by mouth daily for depression. Continue on CIWA protocol for withdrawal. We'll start trazodone 50 mg by mouth at bedtime for sleep disturbance. Discharge planning in progress Justification for Cont. Inpt. At risk for further decompensation if at lower level of care Discharge Planning Patient likely to be referred to the inpatient rehabilitation program for sober living housing upon discharge. Request HC Surrog/Guard Advoc?: No Bayron Basilio MD Apr 21, 2017 13:01
[2017-04-21 14:12] VITALS: BP 155/72; PULSE 77; RESP 16; TEMP 98.2; O2SAT 94
--- NOTE | 2017-04-21 15:35 | HHI.PR ---
Subjective Remarks No headache no blurry vision no chest pain or short of breath Objective Vitals Vital Signs Date Time Temp Pulse Resp B/P (MAP) Pulse Ox O2 Delivery O2 Flow Rate FiO2 04/21/17 14:12 98.2 77 16 155/72 (99) 94 04/21/17 06:04 97.9 76 16 146/79 (101) 99 04/20/17 17:30 97.9 75 16 148/75 (99) I/O 04/20/17 04/20/17 04/20/17 04/21/17 04/21/17 04/21/17 07:00 15:00 23:00 07:00 15:00 23:00 Intake Total 240 ml 720 ml 960 ml 240 ml 480 ml Balance 240 ml 720 ml 960 ml 240 ml 480 ml Intake Oral 240 ml 720 ml 960 ml 240 ml 480 ml # Voids 2 1 2 Result Diagram: 04/20/17 1108 04/20/17 1108 Objective Remarks GENERAL: This is a well-nourished, disheveled female patient sitting up in chair in no apparent distress. SKIN: No rashes, ecchymoses or lesions. Warm and dry. HEAD: Atraumatic. Normocephalic. Pupils equal round and reactive. Extraocular motions intact. No scleral icterus. No injection or drainage. Nose without bleeding. Airway patent. NECK: Trachea midline. No JVD. Supple. Bilateral carotid bruits present. CARDIOVASCULAR: Regular rate and rhythm without gallops, or rubs. 3/6 systolic aortic murmur present with radiation to neck RESPIRATORY: Clear to auscultation. Breath sounds equal bilaterally. No wheezes , rales, or rhonchi. GASTROINTESTINAL: Abdomen soft, non-tender, nondistended No guarding. MUSCULOSKELETAL: Extremities without clubbing, cyanosis, or edema. No joint tenderness, effusion, or edema noted. NEUROLOGICAL: Awake and alert. Cranial nerves II through XII intact. Motor and sensory grossly within normal limits. Five out of 5 muscle strength in all muscle groups. Normal speech. A/P Problem List: (1) Substance abuse ICD Code: F19.10 - Other psychoactive substance abuse, uncomplicated Status: Acute (2) Major depressive disorder, recurrent severe without psychotic features ICD Code: F33.2 - Major depressive disorder, recurrent severe without psychotic features (3) Peripheral vascular disease ICD Code: I73.9 - Peripheral vascular disease, unspecified (4) Hypertension ICD Code: I10 - Essential (primary) hypertension Assessment and Plan Ms. Dave is a 61-year-old female with a known medical history of PVD with claudication, substance abuse and major depressive disorder who presented to the ED under Ibarra Act with increasing depression and consuming pills and mouthwash. Psychiatrist has consulted hospitalist team for medical management. Major depressive disorder - Management per psychiatry team. Continue current treatment. Hypertension, chronic: BP elevated on admission. Now controlled. Continue Norvasc and Atenolol. Clonidine PO PRN available. Monitor BP trends. Increase lisinopril to 10 mg daily for further BP optimization and monitor blood pressure Claudication secondary to PVD history: Obtain records from previous treatment plan and surgeries in [place]. Supportive care. Start on aspirin. Alcohol, tobacco and cocaine abuse: Encouraged cessation, counseled on negative effect on health and disease process. Continue Nicotine patch. Placed on CIWA protocol and monitor for withdrawals. Seizure and fall precautions. Continue thiamine and multivitamin. Hyperlipidemia: Continue Atorvastatin. lipid panel acceptable, HDL 55, LDL 61, TG 290. Probably increase dose if elevated. Follow. Hyponatremia: .possibly due to alcoholism Encourage fluids. Follow BMP. DVT Prophylaxis: Ambulation Ebony Marte MD Apr 21, 2017 15:35
[2017-04-21 18:31] VITALS: BP 154/70; PULSE 74; RESP 17; TEMP 97.9; O2SAT 98
[2017-04-21] MEDS: ATORVASTATIN 10 MG TAB PO SCH (20:34)
[2017-04-22] MEDS: hydrOXYzine HCL 50 MG TAB PO PRN ×2 (06:22→21:25)
[2017-04-22 06:36] VITALS: BP 150/69; PULSE 73; RESP 16; TEMP 97.6; O2SAT 97
[2017-04-22] MEDS: ASPIRIN 81 MG CHEW TAB CHEW SCH (08:54)
[2017-04-22] MEDS: THIAMINE HCL 100 MG TAB PO SCH (08:54)
[2017-04-22] MEDS: ESCITALOPRAM OXALATE 10 MG TAB PO SCH (08:55)
[2017-04-22] MEDS: LISINOPRIL 10 MG TAB PO SCH (08:55)
[2017-04-22] MEDS: ATENOLOL 100 MG TAB PO SCH (08:57)
[2017-04-22] MEDS: REMOVE OLD PATCH T-DERMAL SCH (08:57)
[2017-04-22] MEDS: NICOTINE 21 MG/24 HR PATCH T-DERMAL SCH (08:57)
[2017-04-22] MEDS: FOLIC ACID 1 MG TAB PO SCH (09:00)
[2017-04-22] MEDS: LORazepam 1 MG TAB PO PRN ×3 (09:00→21:25)
--- NOTE | 2017-04-22 13:05 | PD.TTN ---
Patient Problems 1. Discharge planning 2. Medication compliance 3. Knowledge deficit 4. Lack of coping skills Progress Toward Goals Provider Present: Dr. Oren Basilio Provider Input: Meets criteria Nurse(s) Input: Isaac: is crying and depressed that she is homeless Psychiatric Counselors Present: Clarisse Echeverria LCSW Psych Therapist Input: She can benefit from [facility] or [facility] Occupational Therapist Input: Gordon: minimal participation in groups Clarisse Echeverria LCSW Apr 22, 2017 13:05
--- NOTE | 2017-04-22 13:05 | PD.TTN ---
Patient Problems 1. Discharge planning 2. Medication compliance 3. Knowledge deficit 4. Lack of coping skills Progress Toward Goals Provider Present: Dr. Oren Basilio Provider Input: Meets criteria Nurse(s) Input: Isaac: is crying and depressed that she is homeless Psychiatric Counselors Present: Clarisse Echeverria LCSW Psych Therapist Input: She can benefit from [facility] or [facility] Occupational Therapist Input: Gordon: minimal participation in groups Clarisse Echeverria LCSW Apr 22, 2017 13:05
--- NOTE | 2017-04-22 13:05 | PD.TTN ---
Patient Problems 1. Discharge planning 2. Medication compliance 3. Knowledge deficit 4. Lack of coping skills Progress Toward Goals Provider Present: Dr. Oren Basilio Provider Input: Meets criteria Nurse(s) Input: Isaac: is crying and depressed that she is homeless Psychiatric Counselors Present: Clarisse Echeverria LCSW Psych Therapist Input: She can benefit from [facility] or [facility] Occupational Therapist Input: Gordon: minimal participation in groups Clarisse Echeverria LCSW Apr 22, 2017 13:05
--- NOTE | 2017-04-22 15:47 | HHI.PYPN ---
Subjective Remarks Patient seen for follow, chart review. Patient found lying in hospital bed, calm and cooperative interview today. Patient states that she is feeling "pretty depressed". Patient states that she spoke with her social science research assistant about this facility facility and continues to be interested in having being referred to one. Patient states that she is to have a therapist the past 2 years named Candida Fisher which she was seen once week and would like to continue with this therapist upon discharge. Patient states she last saw her therapist about couple of months ago. Patient reports this to be better, continues to have vague suicidal ideations when feeling overwhelmed, continues to feel depressed but is hopeful that she was able to find stable housing. Patient continues to be interested in rehabilitation program for substance use. Review of Systems Except as stated in HPI: all other systems reviewed are Neg Mental Status Examination Appearance: Disheveled Consciousness: Alert Orientation: x4 Motor Activity: Normal gait Speech: Speech impediment Language: Adequate Fund of Knowledge: Adequate Attention and Concentration: Adequate Memory: Unremarkable Mood: Sad, Other ("pretty depressed") Affect: Other (restricted) Thought Process & Associations: Goal directed, Linear Thought Content: Appropriate Hallucination Type: None Delusion Type: None Suicidal Ideation: Yes Suicidal Plan: No Suicidal Intention: No Homicidal Ideation: No Homicidal Plan: No Homicidal Intention: No Insight: Fair Judgment: Poor Results Vitals/IOs Vital Signs Date Time Temp Pulse Resp B/P (MAP) Pulse Ox O2 Delivery O2 Flow Rate FiO2 04/22/17 06:36 97.6 73 16 150/69 (96) 97 04/19/17 14:59 Room Air Intake and Output 04/22/17 04/22/17 04/23/17 08:00 16:00 00:00 Intake Total 480 ml 240 ml Balance 480 ml 240 ml Assessment & Plan Problem List: (1) Major depressive disorder, recurrent severe without psychotic features ICD Codes: F33.2 - Major depressive disorder, recurrent severe without psychotic features (2) Cocaine abuse ICD Codes: F14.10 - Cocaine abuse, uncomplicated (3) Alcohol abuse ICD Codes: F10.10 - Alcohol abuse, uncomplicated Assessment & Plan Patient continues to have depressive mood with vague suicidal ideations. Patient encouraged to continue to maintain hygiene and participate in groups activities while on the unit which a college. We'll increase escitalopram to 20 by mouth daily for depression. Continue rest of medications. Discharge planning in progress Justification for Cont. Inpt. At risk for further decompensation if at lower level of care Discharge Planning Patient will likely require rehabilitation program substance use whether inpatient or outpatient along with placement to sober living housing ordered assisted living facility. Request HC Surrog/Guard Advoc?: No Bayron Basilio MD Apr 22, 2017 15:47
[2017-04-22 18:00] VITALS: BP 101/51; PULSE 72; RESP 17; TEMP 98.1; O2SAT 97
[2017-04-22] MEDS: ATORVASTATIN 10 MG TAB PO SCH (20:34)
[2017-04-22 21:15] VITALS: BP 157/70; PULSE 70; RESP 18; O2SAT 98
[2017-04-23] MEDS: diphenhydrAMINE HCL 50 MG CAP PO PRN (03:16)
[2017-04-23] MEDS: hydrOXYzine HCL 50 MG TAB PO PRN ×2 (05:52→19:37)
[2017-04-23 06:30] VITALS: BP 119/57; PULSE 74; RESP 16; TEMP 97.9; O2SAT 100
[2017-04-23] MEDS: NICOTINE 21 MG/24 HR PATCH T-DERMAL SCH (08:49)
[2017-04-23] MEDS: ATENOLOL 100 MG TAB PO SCH (08:50)
[2017-04-23] MEDS: FOLIC ACID 1 MG TAB PO SCH (08:50)
[2017-04-23] MEDS: REMOVE OLD PATCH T-DERMAL SCH (08:50)
[2017-04-23] MEDS: THIAMINE HCL 100 MG TAB PO SCH (08:50)
[2017-04-23] MEDS: ESCITALOPRAM OXALATE 20 MG TAB PO SCH (08:51)
[2017-04-23] MEDS: ASPIRIN 81 MG CHEW TAB CHEW SCH (08:51)
[2017-04-23] MEDS: LISINOPRIL 10 MG TAB PO SCH (08:51)
[2017-04-23] MEDS: LORazepam 1 MG TAB PO PRN (09:49)
--- NOTE | 2017-04-23 13:13 | HHI.PYPN ---
Subjective Remarks Patient seen for follow-up, chart reviewed. Patient found sitting in day room, calm and cooperative with interview. Patient states that she continues to feel "pretty down" but reports that it is an improvement. She also mentions occasional SI and feelings of hopelessness when thinking about her alcohol use and current homelessness. She reports having difficulty with sleep despite taking diphenhydramine. Patient continues to want to be involved in rehabilitation program for alcohol use. Review of Systems Except as stated in HPI: all other systems reviewed are Neg Mental Status Examination Appearance: Disheveled Consciousness: Alert Orientation: x4 Motor Activity: Normal gait Speech: Slow, Other (low volume) Language: Adequate Fund of Knowledge: Adequate Attention and Concentration: Adequate Memory: Unremarkable Mood: Sad, Other ("still depressed") Affect: Sad, Other (restricted) Thought Process & Associations: Goal directed, Linear Thought Content: Appropriate Hallucination Type: None Delusion Type: None Suicidal Ideation: Yes (continues to endorse but less frequent) Suicidal Plan: No Suicidal Intention: No Homicidal Ideation: No Homicidal Plan: No Homicidal Intention: No Insight: Fair Judgment: Poor Results Vitals/IOs Vital Signs Date Time Temp Pulse Resp B/P (MAP) Pulse Ox O2 Delivery O2 Flow Rate FiO2 04/23/17 06:30 97.9 74 16 119/57 (77) 100 04/19/17 14:59 Room Air Intake and Output 04/23/17 04/23/17 04/24/17 08:00 16:00 00:00 Intake Total 440 ml 240 ml Balance 440 ml 240 ml Assessment & Plan Problem List: (1) Major depressive disorder, recurrent severe without psychotic features ICD Codes: F33.2 - Major depressive disorder, recurrent severe without psychotic features (2) Cocaine abuse ICD Codes: F14.10 - Cocaine abuse, uncomplicated (3) Alcohol abuse ICD Codes: F10.10 - Alcohol abuse, uncomplicated Assessment & Plan Patient continues with depressed mood and occasional SI but noted to be more reactive today, less isolative as she was found in day room today. Patient appears to be improving but will discontinue diphenhydramine and start trazodone 50mg PO HS for sleep disturbance. Continue rest of medications. Continue to encourage patient to maintaine hygiene as she continues to appear disheveled and not showering. Continue to encourage participation in groups and activities. Discharge planning in progress. Justification for Cont. Inpt. At risk for further decompensation if at lower level of care. Discharge Planning Patient to be discharged to RETIREMENT once psychiatrically stable. Request HC Surrog/Guard Advoc?: No Bayron Basilio MD Apr 23, 2017 13:13
--- NOTE | 2017-04-23 14:08 | PD.TTN ---
Patient Problems 1. Discharge planning 2. Medication compliance 3. Knowledge deficit 4. Lack of coping skills Progress Toward Goals Provider Present: Dr. Oren Basilio Provider Input: Meets criteria 04/23/17 Doctor is continuing CIWA to Friday benefit from stable living situation/ needs placement Nurse(s) Input: Isaac: is crying and depressed that she is homeless 04/23/17 Jihan: med seeking and cooperative , aware of substance abuse issues Psychiatric Counselors Present: Clarisse Echeverria LCSW Psych Therapist Input: She can benefit from [facility] or [facility] [place] 04/23/17 ambivalent with this counselor, not looking for substance abuse but wanting an CARE HOME but a specific location appearing to find to be in a certain area of the city discussed [place] as an alternative Group Spec/RT/OT/DALTON Present: KRYSTLE Dempsey Group Spec/RT/OT/DALTON Input: 04/23/17 attended [place] appropriate requires encouragement Occupational Therapist Input: Gordon: minimal participation in groups Clarisse Echeverria LCSW Apr 23, 2017 14:08
--- NOTE | 2017-04-23 14:08 | PD.TTN ---
Patient Problems 1. Discharge planning 2. Medication compliance 3. Knowledge deficit 4. Lack of coping skills Progress Toward Goals Provider Present: Dr. Oren Basilio Provider Input: Meets criteria 04/23/17 Doctor is continuing CIWA to Friday benefit from stable living situation/ needs placement Nurse(s) Input: Isaac: is crying and depressed that she is homeless 04/23/17 Jihan: med seeking and cooperative , aware of substance abuse issues Psychiatric Counselors Present: Clarisse Echeverria LCSW Psych Therapist Input: She can benefit from [facility] or [facility] living [facility] [place] 04/23/17 ambivalent with this counselor, not looking for substance abuse but wanting an CORRECTION but a specific location appearing to find to be in a certain area of the city discussed [place] as an alternative Group Spec/RT/OT/DALTON Present: KRYSTLE Dempsey Group Spec/RT/OT/DALTON Input: 04/23/17 attended [place] appropriate requires encouragement Occupational Therapist Input: Gordon: minimal participation in groups Clarisse Echeverria LCSW Apr 23, 2017 14:08
--- NOTE | 2017-04-23 14:08 | PD.TTN ---
Patient Problems 1. Discharge planning 2. Medication compliance 3. Knowledge deficit 4. Lack of coping skills Progress Toward Goals Provider Present: Dr. Oren Basilio Provider Input: Meets criteria 04/23/17 Doctor is continuing CIWA to Friday benefit from stable living situation/ needs placement Nurse(s) Input: Isaac: is crying and depressed that she is homeless 04/23/17 Jihan: med seeking and cooperative , aware of substance abuse issues Psychiatric Counselors Present: Clarisse Echeverria LCSW Psych Therapist Input: She can benefit from [facility] or [facility] [place] 04/23/17 ambivalent with this counselor, not looking for substance abuse but wanting an HALFWAY but a specific location appearing to find to be in a certain area of the city discussed [place] as an alternative Group Spec/RT/OT/DALTON Present: KRYSTLE Dempsey Group Spec/RT/OT/DALTON Input: 04/23/17 attended [place] appropriate requires encouragement Occupational Therapist Input: Gordon: minimal participation in groups Clarisse Echeverria LCSW Apr 23, 2017 14:08
--- NOTE | 2017-04-23 15:59 | HHI.PR ---
Subjective Remarks Follow-up for hypertension and medical management Patient has no complaints. She stated that she is doing well. Blood pressure has been labile from the lower 100s to 150. She denies any symptoms of chest pain, shortness of breathing, palpitation, lightheadedness or dizziness. Objective Vitals Vital Signs Date Time Temp Pulse Resp B/P (MAP) Pulse Ox O2 Delivery O2 Flow Rate FiO2 04/23/17 06:30 97.9 74 16 119/57 (77) 100 04/22/17 21:15 70 18 157/70 (99) 98 04/22/17 18:00 98.1 72 17 101/51 (68) 97 I/O 04/22/17 04/22/17 04/22/17 04/23/17 04/23/17 04/23/17 07:00 15:00 23:00 07:00 15:00 23:00 Intake Total 1200 ml 720 ml 200 ml 480 ml Balance 1200 ml 720 ml 200 ml 480 ml Intake Oral 1200 ml 720 ml 200 ml 480 ml # Voids 1 1 1 1 Result Diagram: 04/20/17 1108 04/20/17 1108 Objective Remarks GENERAL: in NAD CARDIOVASCULAR: Regular rate and rhythm without murmurs, gallops, or rubs. RESPIRATORY: Breath sounds equal bilaterally. No accessory muscle use. GASTROINTESTINAL: Abdomen soft, non-tender, nondistended. MUSCULOSKELETAL: No cyanosis, or edema. BACK: Nontender without obvious deformity. No CVA tenderness. Medications and IVs Current Medications Sodium Chloride 1,000 ml @ 999 mls/hr BOLUS ONCE IV Last administered on 02:20; Start 04/18/17 at 02:00; Stop 04/18/17 at 03:00; Status DC Thiamine HCl (Vitamin B1) 100 mg ONCE ONCE PO Last administered on 04/18/17 03:35; Start 04/18/17 at 03:30; Stop 04/18/17 at 03:31; Status DC Potassium Chloride (KCl) 60 meq ONCE ONCE PO Last administered on 04/18/17 03:35; Start 04/18/17 at 03:30; Stop 04/18/17 at 03:31; Status DC Sodium Chloride 1,000 ml @ 999 mls/hr BOLUS ONCE IV Last administered on 04:07; Start 04/18/17 at 03:30; Stop 04/18/17 at 04:30; Status DC Folic Acid (Folate) 1 mg ONCE ONCE PO Last administered on 04/18/17 03:35; Start 04/18/17 at 03:30; Stop 04/18/17 at 03:31; Status DC Sodium Chloride 1,000 ml @ 999 mls/hr BOLUS ONCE IV Last administered on 06:47; Start 04/18/17 at 06:30; Stop 04/18/17 at 07:30; Status DC Diphenhydramine HCl (Benadryl) 50 mg HS PRN PO INSOMNIA Last administered on 03:16; Start 04/19/17 at 14:15; Stop 04/23/17 at 06:57; Status DC Acetaminophen (Tylenol) 650 mg Q4H PRN PO Pain 1-5 or Temp >101F; Start at 14:15 Magnesium Hydroxide (Milk Of Magnesia Liq) 30 ml DAILY PRN PO CONSTIPATION; Start 04/19/17 at 14:15 Al Hydrox/Mg Hydrox/Simethicone (Mag-Al Plus Susp Liq) 30 ml Q6H PRN PO DYSPEPSIA; Start 04/19/17 at 14:15 Nicotine (Habitrol 21 Mg Patch.24 Hr) 1 patch DAILY T-DERMAL Last administered on 04/23/17 08:49; Start 04/20/17 at 09:00 Hydroxyzine HCl (Atarax) 50 mg Q6H PRN PO ANXIETY Last administered on 05:52; Start 04/19/17 at 14:15 Benztropine Mesylate (Cogentin) 1 mg Q12H PRN PO EXTRA PYRAMIDAL SYMPTOMS; Start 04/19/17 at 14:15 Benztropine Mesylate (Cogentin Inj) 1 mg Q12H PRN IM EXTRA PYRAMIDAL SYMPTOMS; Start 04/19/17 at 14:15 Flumazenil (Romazicon Inj) 0.2 mg Q1M PRN IV PUSH SEE LABEL COMMENTS; Start at 14:15 Lorazepam (Ativan) 1 mg Q4H PRN PO CIWA 8 - 10 Last administered on 04/23/17 09:49; Start 04/19/17 at 14:15 Lorazepam (Ativan Inj) 1 mg Q4H PRN IV PUSH CIWA 8 - 10; Start 04/19/17 at 14: 15 Lorazepam (Ativan) 2 mg Q2H PRN PO CIWA 11-14 Last administered on 04/20/17 12:28; Start 04/19/17 at 14:15 Lorazepam (Ativan Inj) 2 mg Q2H PRN IV PUSH CIWA 11-14; Start 04/19/17 at 14: 15 Lorazepam (Ativan Inj) 2 mg Q1H PRN IV PUSH CIWA 15-20; Start 04/19/17 at 14: 15 Lorazepam (Ativan Inj) 2 mg Q15M PRN IV PUSH CIWA > 20; Start 04/19/17 at 14: 15 Miscellaneous Information 1 DAILY T-DERMAL Last administered on 04/23/17 08: 50; Start 04/20/17 at 09:00 Thiamine HCl (Vitamin B1) 100 mg DAILY PO Last administered on 04/23/17 08:50 ; Start 04/20/17 at 09:00 Folic Acid (Folate) 1 mg DAILY PO Last administered on 04/23/17 08:50; Start 04/20/17 at 09:00 Escitalopram Oxalate (Lexapro) 10 mg DAILY PO Last administered on 04/22/17 08:55; Start 04/20/17 at 09:00; Stop 04/22/17 at 13:11; Status DC Amlodipine Besylate (Norvasc) 10 mg DAILY PO Last administered on 04/23/17 08 :50; Start 04/20/17 at 09:00 Atenolol (Tenormin) 100 mg DAILY PO Last administered on 04/23/17 08:50; Start 04/20/17 at 09:00 Atorvastatin Calcium (Lipitor) 10 mg HS PO Last administered on 04/22/17 20: 34; Start 04/19/17 at 21:00 Clonidine (Catapres) 0.1 mg Q6H PRN PO bp>160/90; Start 04/19/17 at 14:45 Aspirin (Aspirin Chew) 81 mg DAILY CHEW Last administered on 04/23/17 08:51; Start 04/19/17 at 15:45 Lisinopril (Prinivil) 5 mg DAILY PO Last administered on 04/21/17 08:10; Start 04/20/17 at 12:00; Stop 04/21/17 at 10:57; Status DC Lisinopril (Prinivil) 10 mg DAILY PO Last administered on 04/23/17 08:51; Start 04/22/17 at 09:00 Escitalopram Oxalate (Lexapro) 20 mg DAILY PO Last administered on 04/23/17 08:51; Start 04/23/17 at 09:00 Trazodone HCl (Desyrel) 50 mg HS PO ; Start 04/23/17 at 21:00 A/P Problem List: (1) Substance abuse ICD Code: F19.10 - Other psychoactive substance abuse, uncomplicated Status: Acute (2) Major depressive disorder, recurrent severe without psychotic features ICD Code: F33.2 - Major depressive disorder, recurrent severe without psychotic features (3) Peripheral vascular disease ICD Code: I73.9 - Peripheral vascular disease, unspecified (4) Hypertension ICD Code: I10 - Essential (primary) hypertension Assessment and Plan Ms. Dave is a 61-year-old female with a known medical history of PVD with claudication, substance abuse and major depressive disorder who presented to the ED under Ibarra Act with increasing depression and consuming pills and mouthwash. Psychiatrist has consulted hospitalist team for medical management. Major depressive disorder - Management per psychiatry team. Continue current treatment. Hypertension, chronic: -Blood pressure has been very labile. With normotensive reading in the low 100s. I would continue her current regimen. -Continue Norvasc, atenolol and lisinopril. Claudication secondary to PVD history: -Obtain records from previous treatment plan and surgeries in [place]. Supportive care. On aspirin. Alcohol, tobacco and cocaine abuse: - Encouraged cessation, counseled on negative effect on health and disease process. Continue Nicotine patch. Placed on CIWA protocol and monitor for withdrawals. Seizure and fall precautions. Continue thiamine and multivitamin. Hyperlipidemia -Continue Atorvastatin. lipid panel acceptable, HDL 55, LDL 61, TG 290. Hyponatremia: -Probably secondary to alcoholism. Improved. Symptoms now 132. She is asymptomatic. DVT Prophylaxis: Ambulation Violet Minor MD Apr 23, 2017 15:59
[2017-04-23 17:48] VITALS: BP 179/80; PULSE 71; RESP 16; O2SAT 96
[2017-04-23] MEDS ORDERED: traZODone HCL 50 MG TAB PO SCH (21:00)
[2017-04-23] MEDS: ATORVASTATIN 10 MG TAB PO SCH (21:56)
[2017-04-23 23:06] VITALS: BP 141/65; PULSE 73
[2017-04-24 05:41] VITALS: BP 151/65; PULSE 64; RESP 16; TEMP 98.2; O2SAT 100
[2017-04-24] MEDS: THIAMINE HCL 100 MG TAB PO SCH (08:43)
[2017-04-24] MEDS: ATENOLOL 100 MG TAB PO SCH (08:43)
[2017-04-24] MEDS: LISINOPRIL 10 MG TAB PO SCH (08:43)
[2017-04-24] MEDS: ESCITALOPRAM OXALATE 20 MG TAB PO SCH (08:43)
[2017-04-24] MEDS: REMOVE OLD PATCH T-DERMAL SCH (08:44)
[2017-04-24] MEDS: NICOTINE 21 MG/24 HR PATCH T-DERMAL SCH (08:44)
[2017-04-24] MEDS: FOLIC ACID 1 MG TAB PO SCH (08:44)
[2017-04-24] MEDS: ASPIRIN 81 MG CHEW TAB CHEW SCH (08:44)
[2017-04-24] MEDS: hydrOXYzine HCL 50 MG TAB PO PRN (08:45)
[2017-04-24] MEDS: ACETAMINOPHEN 325 MG TAB PO PRN (13:20)
--- NOTE | 2017-04-24 13:42 | HHI.PYPN ---
Subjective Remarks Patient seen for follow-up, chart review. Patient found hospital bed, cooperative today. Patient continues to be disheveled which she was reminded that she will require intensive personal hygiene which she acknowledged. Patient reports that she is having some difficulty with sleep despite of being started on trazodone 50 mg by mouth at bedtime on. Patient states that her mood has been "not too bad" but continues to have occasional suicidal ideations related to her stressors. Patient states that she has had a therapist in the past which he plans on wanting to reengage and upon discharge. Possibility of having patient discharged to assisted living facility was of interest to her which treatment team is currently pursuing. Patient this time denies any SI, HI , AVH or delusions at time of interview. Review of Systems Except as stated in HPI: all other systems reviewed are Neg Mental Status Examination Appearance: Disheveled Consciousness: Alert Orientation: x4 Motor Activity: Normal gait Speech: Other (low volume) Language: Adequate Fund of Knowledge: Adequate Attention and Concentration: Adequate Memory: Unremarkable Mood: Sad, Other ("not too bad" ) Affect: Sad (but more reactive today), Other (restricted) Thought Process & Associations: Goal directed, Linear Thought Content: Appropriate Hallucination Type: None Delusion Type: None Suicidal Ideation: Yes (occasionally still) Suicidal Plan: No Suicidal Intention: No Homicidal Ideation: No Homicidal Plan: No Homicidal Intention: No Insight: Fair Judgment: Poor Results Vitals/IOs Vital Signs Date Time Temp Pulse Resp B/P (MAP) Pulse Ox O2 Delivery O2 Flow Rate FiO2 04/24/17 05:41 98.2 64 16 151/65 (93) 100 Intake and Output 04/24/17 04/24/17 04/25/17 08:00 16:00 00:00 Intake Total 240 ml 360 ml Balance 240 ml 360 ml Assessment & Plan Problem List: (1) Major depressive disorder, recurrent severe without psychotic features ICD Codes: F33.2 - Major depressive disorder, recurrent severe without psychotic features (2) Cocaine abuse ICD Codes: F14.10 - Cocaine abuse, uncomplicated (3) Alcohol abuse ICD Codes: F10.10 - Alcohol abuse, uncomplicated Assessment & Plan Patient appears to having some improvement in her mood, lessening of suicidal ideations. Patient noted to be more engaging and reactive during interview today. We'll increase trazodone to 100 mg by mouth at bedtime for sleep disturbance. Continue aggressive medications. Treatment he will continue to pursue acquisition of placement in an assisted living facility. Justification for Cont. Inpt. At risk for further decompensation if at lower level of care Discharge Planning Patient to be discharged to sleep facility once acquired once psychiatrically stable Request HC Surrog/Guard Advoc?: Bayron Tariq MD Apr 24, 2017 13:42
--- NOTE | 2017-04-24 17:29 | RADRPT ---
EXAM DATE/TIME: 04/24/2017 17:20 [facility] COMPARISON: No previous studies available for comparison. INDICATIONS : Rule out tuberculosis. MEDICAL HISTORY : Cardiovascular disease. SURGICAL HISTORY : Aortic stent. ENCOUNTER: Initial ACUITY: 1 day PAIN SCORE: 0/10 LOCATION: Bilateral chest FINDINGS: The lungs are symmetrically aerated and clear. No focal infiltrates seen. The heart is normal in si ze. Multiple hemoclips project over the right upper chest. There is dense calcification in the wall of the aorta and there is a distal descending aortic stent. The mid descending aorta measures up to 4.9 cm in dimension. CONCLUSION: 1. The lungs are clear. 2. Descending aorta aneurysm and distal thoracic aortic stent. Charles Horner MD on April 24, 2017 at 17:26 Board Certified Radiologist. This report was verified electronically.
[2017-04-24 18:21] VITALS: BP 134/60; PULSE 60; RESP 18; TEMP 98.1; O2SAT 91
[2017-04-24] MEDS: ATORVASTATIN 10 MG TAB PO SCH (21:34)
[2017-04-24] MEDS: traZODone HCL 50 MG TAB PO SCH (21:34)
[2017-04-25 06:30] VITALS: BP 162/70; PULSE 65; RESP 17; TEMP 97.4; O2SAT 99
[2017-04-25] MEDS: ATENOLOL 100 MG TAB PO SCH (09:00)
[2017-04-25] MEDS: REMOVE OLD PATCH T-DERMAL SCH (09:00)
[2017-04-25] MEDS: LISINOPRIL 10 MG TAB PO SCH ×2 (09:34→21:33)
[2017-04-25] MEDS: ACETAMINOPHEN 325 MG TAB PO PRN ×2 (09:34→18:26)
[2017-04-25] MEDS: THIAMINE HCL 100 MG TAB PO SCH (09:34)
[2017-04-25] MEDS: FOLIC ACID 1 MG TAB PO SCH (09:34)
[2017-04-25] MEDS: ASPIRIN 81 MG CHEW TAB CHEW SCH (09:34)
[2017-04-25] MEDS: ESCITALOPRAM OXALATE 20 MG TAB PO SCH (09:34)
[2017-04-25] MEDS: NICOTINE 21 MG/24 HR PATCH T-DERMAL SCH (09:35)
--- NOTE | 2017-04-25 16:35 | HHI.PYPN ---
Subjective Remarks Patient seen for follow-up, chart reviewed. Patient found sitting in day room, calm and cooperative with interview. Patient states that her mood has been "alright", noted to have improved her hygiene and is now requesting clothes. Patient states that her mood is improving and having less SI that come and go. She is motivated to attend rehabilitation program. Review of Systems Except as stated in HPI: all other systems reviewed are Neg Mental Status Examination Appearance: Disheveled (improving) Consciousness: Alert Orientation: x4 Motor Activity: Normal gait Speech: Other Language: Adequate Fund of Knowledge: Adequate Attention and Concentration: Adequate Memory: Unremarkable Mood: Other ("alright") Affect: Sad (less so today) Thought Process & Associations: Goal directed, Linear Thought Content: Appropriate Hallucination Type: None Delusion Type: None Suicidal Ideation: Yes ("come and go") Suicidal Plan: No Suicidal Intention: No Homicidal Ideation: No Homicidal Plan: No Homicidal Intention: No Insight: Fair Judgment: Impulsive Results Vitals/IOs Vital Signs Date Time Temp Pulse Resp B/P (MAP) Pulse Ox O2 Delivery O2 Flow Rate FiO2 04/25/17 06:30 97.4 65 17 162/70 (100) 99 Intake and Output 04/25/17 04/25/17 04/26/17 08:00 16:00 00:00 Intake Total 0 ml 1440 ml Balance 0 ml 1440 ml Assessment & Plan Problem List: (1) Major depressive disorder, recurrent severe without psychotic features ICD Codes: F33.2 - Major depressive disorder, recurrent severe without psychotic features (2) Cocaine abuse ICD Codes: F14.10 - Cocaine abuse, uncomplicated (3) Alcohol abuse ICD Codes: F10.10 - Alcohol abuse, uncomplicated Assessment & Plan Patient noted to have improvement in hygiene, mood and decrease in SI. Will continue current treatment. Continue to encourage good hygiene and participation in groups and activities. Discharge planning in progress. Justification for Cont. Inpt. At risk for further decompensation if at lower level of care. Discharge Planning Patient to be discharged to [facility] once psychiatically stable. Request HC Surrog/Guard Advoc?: No Bayron Basilio MD Apr 25, 2017 16:35
--- NOTE | 2017-04-25 17:02 | HHI.PR ---
Subjective Remarks Follow-up for hypertension Patient blood pressure continue to be labile. When I spoke to patient regards to her blood pressure she stated that she usually takes Norvasc at night and atenolol the morning that works for her. She has no complaints. Deny any chest pain, shortness of breathing, palpitation, lightheadedness or dizziness. Objective Vitals Vital Signs Date Time Temp Pulse Resp B/P (MAP) Pulse Ox O2 Delivery O2 Flow Rate FiO2 04/25/17 06:30 97.4 65 17 162/70 (100) 99 04/24/17 18:21 98.1 60 18 134/60 (84) 91 I/O 04/24/17 04/24/17 04/24/17 04/25/17 04/25/17 04/25/17 07:00 15:00 23:00 07:00 15:00 23:00 Intake Total 0 ml 600 ml 600 ml 0 ml 1440 ml Balance 0 ml 600 ml 600 ml 0 ml 1440 ml Intake Oral 0 ml 600 ml 600 ml 0 ml 1440 ml # Voids 1 2 0 Objective Remarks GENERAL: in NAD CARDIOVASCULAR: Regular rate and rhythm without murmurs, gallops, or rubs. RESPIRATORY: Breath sounds equal bilaterally. No accessory muscle use. GASTROINTESTINAL: Abdomen soft, non-tender, nondistended. MUSCULOSKELETAL: No cyanosis, or edema. BACK: Nontender without obvious deformity. No CVA tenderness. Medications and IVs Current Medications Sodium Chloride 1,000 ml @ 999 mls/hr BOLUS ONCE IV Last administered on 02:20; Start 04/18/17 at 02:00; Stop 04/18/17 at 03:00; Status DC Thiamine HCl (Vitamin B1) 100 mg ONCE ONCE PO Last administered on 04/18/17 03:35; Start 04/18/17 at 03:30; Stop 04/18/17 at 03:31; Status DC Potassium Chloride (KCl) 60 meq ONCE ONCE PO Last administered on 04/18/17 03:35; Start 04/18/17 at 03:30; Stop 04/18/17 at 03:31; Status DC Sodium Chloride 1,000 ml @ 999 mls/hr BOLUS ONCE IV Last administered on 04:07; Start 04/18/17 at 03:30; Stop 04/18/17 at 04:30; Status DC Folic Acid (Folate) 1 mg ONCE ONCE PO Last administered on 04/18/17 03:35; Start 04/18/17 at 03:30; Stop 04/18/17 at 03:31; Status DC Sodium Chloride 1,000 ml @ 999 mls/hr BOLUS ONCE IV Last administered on 06:47; Start 04/18/17 at 06:30; Stop 04/18/17 at 07:30; Status DC Diphenhydramine HCl (Benadryl) 50 mg HS PRN PO INSOMNIA Last administered on 03:16; Start 04/19/17 at 14:15; Stop 04/23/17 at 06:57; Status DC Acetaminophen (Tylenol) 650 mg Q4H PRN PO Pain 1-5 or Temp >101F Last administered on 04/25/17 09:34; Start 04/19/17 at 14:15 Magnesium Hydroxide (Milk Of Magnesia Liq) 30 ml DAILY PRN PO CONSTIPATION; Start 04/19/17 at 14:15 Al Hydrox/Mg Hydrox/Simethicone (Mag-Al Plus Susp Liq) 30 ml Q6H PRN PO DYSPEPSIA; Start 04/19/17 at 14:15 Nicotine (Habitrol 21 Mg Patch.24 Hr) 1 patch DAILY T-DERMAL Last administered on 04/25/17 09:35; Start 04/20/17 at 09:00 Hydroxyzine HCl (Atarax) 50 mg Q6H PRN PO ANXIETY Last administered on 08:45; Start 04/19/17 at 14:15 Benztropine Mesylate (Cogentin) 1 mg Q12H PRN PO EXTRA PYRAMIDAL SYMPTOMS; Start 04/19/17 at 14:15 Benztropine Mesylate (Cogentin Inj) 1 mg Q12H PRN IM EXTRA PYRAMIDAL SYMPTOMS; Start 04/19/17 at 14:15 Flumazenil (Romazicon Inj) 0.2 mg Q1M PRN IV PUSH SEE LABEL COMMENTS; Start at 14:15 Lorazepam (Ativan) 1 mg Q4H PRN PO CIWA 8 - 10 Last administered on 04/23/17 09:49; Start 04/19/17 at 14:15 Lorazepam (Ativan Inj) 1 mg Q4H PRN IV PUSH CIWA 8 - 10; Start 04/19/17 at 14: 15 Lorazepam (Ativan) 2 mg Q2H PRN PO CIWA 11-14 Last administered on 04/20/17 12:28; Start 04/19/17 at 14:15 Lorazepam (Ativan Inj) 2 mg Q2H PRN IV PUSH CIWA 11-14; Start 04/19/17 at 14: 15 Lorazepam (Ativan Inj) 2 mg Q1H PRN IV PUSH CIWA 15-20; Start 04/19/17 at 14: 15 Lorazepam (Ativan Inj) 2 mg Q15M PRN IV PUSH CIWA > 20; Start 04/19/17 at 14: 15 Miscellaneous Information 1 DAILY T-DERMAL Last administered on 04/25/17 09: 00; Start 04/20/17 at 09:00 Thiamine HCl (Vitamin B1) 100 mg DAILY PO Last administered on 04/25/17 09:34 ; Start 04/20/17 at 09:00 Folic Acid (Folate) 1 mg DAILY PO Last administered on 04/25/17 09:34; Start 04/20/17 at 09:00 Escitalopram Oxalate (Lexapro) 10 mg DAILY PO Last administered on 04/22/17 08:55; Start 04/20/17 at 09:00; Stop 04/22/17 at 13:11; Status DC Amlodipine Besylate (Norvasc) 10 mg DAILY PO Last administered on 04/25/17 09 :33; Start 04/20/17 at 09:00 Atenolol (Tenormin) 100 mg DAILY PO Last administered on 04/25/17 09:00; Start 04/20/17 at 09:00 Atorvastatin Calcium (Lipitor) 10 mg HS PO Last administered on 04/24/17 21: 34; Start 04/19/17 at 21:00 Clonidine (Catapres) 0.1 mg Q6H PRN PO bp>160/90; Start 04/19/17 at 14:45 Aspirin (Aspirin Chew) 81 mg DAILY CHEW Last administered on 04/25/17 09:34; Start 04/19/17 at 15:45 Lisinopril (Prinivil) 5 mg DAILY PO Last administered on 04/21/17 08:10; Start 04/20/17 at 12:00; Stop 04/21/17 at 10:57; Status DC Lisinopril (Prinivil) 10 mg DAILY PO Last administered on 04/25/17 09:34; Start 04/22/17 at 09:00 Escitalopram Oxalate (Lexapro) 20 mg DAILY PO Last administered on 04/25/17 09:34; Start 04/23/17 at 09:00 Trazodone HCl (Desyrel) 50 mg HS PO Last administered on 04/23/17 21:56; Start 04/23/17 at 21:00; Stop 04/24/17 at 11:06; Status DC Trazodone HCl (Desyrel) 100 mg HS PO Last administered on 04/24/17 21:34; Start 04/24/17 at 21:00 A/P Problem List: (1) Substance abuse ICD Code: F19.10 - Other psychoactive substance abuse, uncomplicated Status: Acute (2) Major depressive disorder, recurrent severe without psychotic features ICD Code: F33.2 - Major depressive disorder, recurrent severe without psychotic features (3) Peripheral vascular disease ICD Code: I73.9 - Peripheral vascular disease, unspecified (4) Hypertension ICD Code: I10 - Essential (primary) hypertension Assessment and Plan Ms. Dave is a 61-year-old female with a known medical history of PVD with claudication, substance abuse and major depressive disorder who presented to the ED under [place] Act with increasing depression and consuming pills and mouthwash. Psychiatrist has consulted hospitalist team for medical management. Major depressive disorder - Management per psychiatry team. Continue current treatment. Hypertension, chronic: -Blood pressure has been very labile. Will continue current regimen but schedule her Norvasc at night. Claudication secondary to PVD history: -Obtain records from previous treatment plan and surgeries in [place]. Supportive care. On aspirin. Alcohol, tobacco and cocaine abuse: - Encouraged cessation, counseled on negative effect on health and disease process. Continue Nicotine patch. Placed on CIWA protocol and monitor for withdrawals. Seizure and fall precautions. Continue thiamine and multivitamin. Hyperlipidemia -Continue Atorvastatin. lipid panel acceptable, HDL 55, LDL 61, TG 290. Hyponatremia: -Probably secondary to alcoholism. Improved. Symptoms now 132. She is asymptomatic. DVT Prophylaxis: Ambulation VanViolet Lindsay MD Apr 25, 2017 17:02
[2017-04-25] MEDS: hydrOXYzine HCL 50 MG TAB PO PRN (18:26)
[2017-04-25] MEDS: ATORVASTATIN 10 MG TAB PO SCH (21:32)
[2017-04-25] MEDS: traZODone HCL 50 MG TAB PO SCH (21:33)
[2017-04-26 06:11] VITALS: BP 135/64; PULSE 75; RESP 18; TEMP 98.3; O2SAT 97
[2017-04-26 08:35] VITALS: BP 118/57; PULSE 77; RESP 18; TEMP 98.7; O2SAT 98
[2017-04-26] MEDS: ATENOLOL 100 MG TAB PO SCH (09:00)
[2017-04-26] MEDS: REMOVE OLD PATCH T-DERMAL SCH (09:00)
[2017-04-26] MEDS: ASPIRIN 81 MG CHEW TAB CHEW SCH (09:24)
[2017-04-26] MEDS: THIAMINE HCL 100 MG TAB PO SCH (09:25)
[2017-04-26] MEDS: LISINOPRIL 10 MG TAB PO SCH ×2 (09:26→20:27)
[2017-04-26] MEDS: ESCITALOPRAM OXALATE 20 MG TAB PO SCH (09:26)
[2017-04-26] MEDS: FOLIC ACID 1 MG TAB PO SCH (09:26)
[2017-04-26] MEDS: NICOTINE 21 MG/24 HR PATCH T-DERMAL SCH (09:27)
[2017-04-26] MEDS: ACETAMINOPHEN 325 MG TAB PO PRN ×2 (09:30→15:33)
[2017-04-26 13:33] VITALS: BP 176/74; PULSE 71
--- NOTE | 2017-04-26 15:21 | HHI.PYPN ---
Subjective Remarks Patient was seen and case discussed with nursing. Patient is disheveled and somewhat entitled. She wrote an extensive list of demands. Chief complaint for me is insomnia and is requesting a higher dose of trazodone. Mood is improving. She denies suicidal or homicidal ideations thought intent or plan Mental Status Examination Appearance: Disheveled (improving) Consciousness: Alert Orientation: x4 Motor Activity: Normal gait Speech: Other Language: Adequate Fund of Knowledge: Adequate Attention and Concentration: Adequate Memory: Unremarkable Mood: Other ("alright") Affect: Sad (less so today) Thought Process & Associations: Goal directed, Linear Thought Content: Appropriate Hallucination Type: None Delusion Type: None Suicidal Ideation: Yes ("come and go") Suicidal Plan: No Suicidal Intention: No Homicidal Ideation: No Homicidal Plan: No Homicidal Intention: No Insight: Fair Judgment: Impulsive Results Vitals/IOs Vital Signs Date Time Temp Pulse Resp B/P (MAP) Pulse Ox O2 Delivery O2 Flow Rate FiO2 04/26/17 13:33 71 176/74 (108) 04/26/17 08:35 98.7 18 98 Assessment & Plan Problem List: (1) Major depressive disorder, recurrent severe without psychotic features ICD Codes: F33.2 - Major depressive disorder, recurrent severe without psychotic features (2) Cocaine abuse ICD Codes: F14.10 - Cocaine abuse, uncomplicated (3) Alcohol abuse ICD Codes: F10.10 - Alcohol abuse, uncomplicated Assessment & Plan Continue current treatment plan, increased increase trazodone to 150 mg daily at bedtime Justification for Cont. Inpt. Patient would decompensate in a less restrictive setting Request HC Surrog/Guard Advoc?: No Melo Man DO Apr 26, 2017 15:21
[2017-04-26 17:01] VITALS: BP 154/56; PULSE 71
[2017-04-26 17:32] VITALS: BP 132/64
[2017-04-26 17:39] VITALS: BP 132/64; PULSE 67; RESP 18; TEMP 97.8; O2SAT 100
[2017-04-26] MEDS: ATORVASTATIN 10 MG TAB PO SCH (20:56)
[2017-04-26] MEDS: traZODone HCL 50 MG TAB PO SCH (20:57)
[2017-04-27 05:58] VITALS: BP 123/59; PULSE 70; RESP 16; TEMP 97.8; O2SAT 97
[2017-04-27] MEDS: ATENOLOL 100 MG TAB PO SCH (09:00)
[2017-04-27] MEDS: ESCITALOPRAM OXALATE 20 MG TAB PO SCH ×2 (09:00→09:04)
[2017-04-27] MEDS: REMOVE OLD PATCH T-DERMAL SCH (09:00)
[2017-04-27] MEDS: ASPIRIN 81 MG CHEW TAB CHEW SCH (09:04)
[2017-04-27] MEDS: FOLIC ACID 1 MG TAB PO SCH (09:04)
[2017-04-27] MEDS: NICOTINE 21 MG/24 HR PATCH T-DERMAL SCH (09:05)
[2017-04-27] MEDS: THIAMINE HCL 100 MG TAB PO SCH (09:05)
[2017-04-27] MEDS: LISINOPRIL 10 MG TAB PO SCH ×2 (09:05→20:08)
[2017-04-27] MEDS: ACETAMINOPHEN 325 MG TAB PO PRN (09:56)
--- NOTE | 2017-04-27 12:38 | HHI.PYPN ---
Subjective Remarks Patient was seen and case discussed with nursing. Patient found a benefit from her trazodone. Is now sleeping well. She remains pleasant and cooperative with exam. Affect is anxious. Continues to deny psychotic symptoms. Mental Status Examination Appearance: Disheveled (improving) Consciousness: Alert Orientation: x4 Motor Activity: Normal gait Speech: Other Language: Adequate Fund of Knowledge: Adequate Attention and Concentration: Adequate Memory: Unremarkable Mood: Other ("alright") Affect: Anxious Thought Process & Associations: Goal directed, Linear Thought Content: Appropriate Hallucination Type: None Delusion Type: None Suicidal Ideation: Yes ("come and go") Suicidal Plan: No Suicidal Intention: No Homicidal Ideation: No Homicidal Plan: No Homicidal Intention: No Insight: Fair Judgment: Impulsive Results Vitals/IOs Vital Signs Date Time Temp Pulse Resp B/P (MAP) Pulse Ox O2 Delivery O2 Flow Rate FiO2 04/27/17 05:58 97.8 70 16 123/59 (80) 97 Assessment & Plan Problem List: (1) Major depressive disorder, recurrent severe without psychotic features ICD Codes: F33.2 - Major depressive disorder, recurrent severe without psychotic features (2) Cocaine abuse ICD Codes: F14.10 - Cocaine abuse, uncomplicated (3) Alcohol abuse ICD Codes: F10.10 - Alcohol abuse, uncomplicated Assessment & Plan Continue current treatment plan Justification for Cont. Inpt. Patient will decompensate in a less restrictive setting Request HC Surrog/Guard Advoc?: No Melo Man DO Apr 27, 2017 12:38
--- NOTE | 2017-04-27 15:30 | HHI.PR ---
Subjective Remarks Follow-up for hypertension Blood pressure better controlled but is labile mostly normotensive. Patient has no complaints. Deny any chest pain, shortness of breathing, palpitation, lightheadedness or dizziness. She stated she is doing well. Objective Vitals Vital Signs Date Time Temp Pulse Resp B/P (MAP) Pulse Ox O2 Delivery O2 Flow Rate FiO2 04/27/17 05:58 97.8 70 16 123/59 (80) 97 04/26/17 17:39 97.8 67 18 132/64 (86) 100 04/26/17 17:32 132/64 (86) 04/26/17 17:01 71 154/56 (88) Imaging Last Impressions Chest X-Ray 04/24/17 0000 Signed Impressions: Service Date/Time: March 17:20 - CONCLUSION: 1. The lungs are clear. 2. Descending aorta aneurysm and distal thoracic aortic stent. Charles Horner MD Objective Remarks GENERAL: in NAD CARDIOVASCULAR: Regular rate and rhythm without murmurs, gallops, or rubs. RESPIRATORY: Breath sounds equal bilaterally. No accessory muscle use. GASTROINTESTINAL: Abdomen soft, non-tender, nondistended. MUSCULOSKELETAL: No cyanosis, or edema. BACK: Nontender without obvious deformity. No CVA tenderness. Medications and IVs Current Medications Sodium Chloride 1,000 ml @ 999 mls/hr BOLUS ONCE IV Last administered on 02:20; Start 04/18/17 at 02:00; Stop 04/18/17 at 03:00; Status DC Thiamine HCl (Vitamin B1) 100 mg ONCE ONCE PO Last administered on 04/18/17 03:35; Start 04/18/17 at 03:30; Stop 04/18/17 at 03:31; Status DC Potassium Chloride (KCl) 60 meq ONCE ONCE PO Last administered on 04/18/17 03:35; Start 04/18/17 at 03:30; Stop 04/18/17 at 03:31; Status DC Sodium Chloride 1,000 ml @ 999 mls/hr BOLUS ONCE IV Last administered on 04:07; Start 04/18/17 at 03:30; Stop 04/18/17 at 04:30; Status DC Folic Acid (Folate) 1 mg ONCE ONCE PO Last administered on 04/18/17 03:35; Start 04/18/17 at 03:30; Stop 04/18/17 at 03:31; Status DC Sodium Chloride 1,000 ml @ 999 mls/hr BOLUS ONCE IV Last administered on 06:47; Start 04/18/17 at 06:30; Stop 04/18/17 at 07:30; Status DC Diphenhydramine HCl (Benadryl) 50 mg HS PRN PO INSOMNIA Last administered on 03:16; Start 04/19/17 at 14:15; Stop 04/23/17 at 06:57; Status DC Acetaminophen (Tylenol) 650 mg Q4H PRN PO Pain 1-5 or Temp >101F Last administered on 04/27/17 09:56; Start 04/19/17 at 14:15 Magnesium Hydroxide (Milk Of Magnesia Liq) 30 ml DAILY PRN PO CONSTIPATION; Start 04/19/17 at 14:15 Al Hydrox/Mg Hydrox/Simethicone (Mag-Al Plus Susp Liq) 30 ml Q6H PRN PO DYSPEPSIA; Start 04/19/17 at 14:15 Nicotine (Habitrol 21 Mg Patch.24 Hr) 1 patch DAILY T-DERMAL Last administered on 04/27/17 09:05; Start 04/20/17 at 09:00 Hydroxyzine HCl (Atarax) 50 mg Q6H PRN PO ANXIETY Last administered on 18:26; Start 04/19/17 at 14:15 Benztropine Mesylate (Cogentin) 1 mg Q12H PRN PO EXTRA PYRAMIDAL SYMPTOMS; Start 04/19/17 at 14:15 Benztropine Mesylate (Cogentin Inj) 1 mg Q12H PRN IM EXTRA PYRAMIDAL SYMPTOMS; Start 04/19/17 at 14:15 Flumazenil (Romazicon Inj) 0.2 mg Q1M PRN IV PUSH SEE LABEL COMMENTS; Start at 14:15 Lorazepam (Ativan) 1 mg Q4H PRN PO CIWA 8 - 10 Last administered on 04/23/17 09:49; Start 04/19/17 at 14:15 Lorazepam (Ativan Inj) 1 mg Q4H PRN IV PUSH CIWA 8 - 10; Start 04/19/17 at 14: 15 Lorazepam (Ativan) 2 mg Q2H PRN PO CIWA 11-14 Last administered on 04/20/17 12:28; Start 04/19/17 at 14:15 Lorazepam (Ativan Inj) 2 mg Q2H PRN IV PUSH CIWA 11-14; Start 04/19/17 at 14: 15 Lorazepam (Ativan Inj) 2 mg Q1H PRN IV PUSH CIWA 15-20; Start 04/19/17 at 14: 15 Lorazepam (Ativan Inj) 2 mg Q15M PRN IV PUSH CIWA > 20; Start 04/19/17 at 14: 15 Miscellaneous Information 1 DAILY T-DERMAL Last administered on 04/27/17 09: 00; Start 04/20/17 at 09:00 Thiamine HCl (Vitamin B1) 100 mg DAILY PO Last administered on 04/27/17 09:05 ; Start 04/20/17 at 09:00 Folic Acid (Folate) 1 mg DAILY PO Last administered on 04/27/17 09:04; Start 04/20/17 at 09:00 Escitalopram Oxalate (Lexapro) 10 mg DAILY PO Last administered on 04/22/17 08:55; Start 04/20/17 at 09:00; Stop 04/22/17 at 13:11; Status DC Amlodipine Besylate (Norvasc) 10 mg DAILY PO Last administered on 04/27/17 09 :04; Start 04/20/17 at 09:00 Atenolol (Tenormin) 100 mg DAILY PO Last administered on 04/27/17 09:00; Start 04/20/17 at 09:00 Atorvastatin Calcium (Lipitor) 10 mg HS PO Last administered on 04/26/17 20: 56; Start 04/19/17 at 21:00 Clonidine (Catapres) 0.1 mg Q6H PRN PO bp>160/90; Start 04/19/17 at 14:45 Aspirin (Aspirin Chew) 81 mg DAILY CHEW Last administered on 04/27/17 09:04; Start 04/19/17 at 15:45 Lisinopril (Prinivil) 5 mg DAILY PO Last administered on 04/21/17 08:10; Start 04/20/17 at 12:00; Stop 10/23/17 at 10:57; Status DC Lisinopril (Prinivil) 10 mg DAILY PO Last administered on 04/25/17 09:34; Start 04/22/17 at 09:00; Stop 04/25/17 at 17:03; Status DC Escitalopram Oxalate (Lexapro) 20 mg DAILY PO Last administered on 04/27/17 09:00; Start 04/23/17 at 09:00 Trazodone HCl (Desyrel) 50 mg HS PO Last administered on 04/23/17 21:56; Start 04/23/17 at 21:00; Stop 04/24/17 at 11:06; Status DC Trazodone HCl (Desyrel) 100 mg HS PO Last administered on 04/25/17 21:33; Start 04/24/17 at 21:00; Stop 04/26/17 at 15:23; Status DC Lisinopril (Prinivil) 10 mg Q12HR PO Last administered on 04/27/17 09:05; Start 04/25/17 at 21:00 Trazodone HCl (Desyrel) 150 mg HS PO Last administered on 04/26/17 20:57; Start 04/26/17 at 21:00 A/P Problem List: (1) Substance abuse ICD Code: F19.10 - Other psychoactive substance abuse, uncomplicated Status: Acute (2) Major depressive disorder, recurrent severe without psychotic features ICD Code: F33.2 - Major depressive disorder, recurrent severe without psychotic features (3) Peripheral vascular disease ICD Code: I73.9 - Peripheral vascular disease, unspecified (4) Hypertension ICD Code: I10 - Essential (primary) hypertension Assessment and Plan Ms. Dave is a 61-year-old female with a known medical history of PVD with claudication, substance abuse and major depressive disorder who presented to the ED under [place] Act with increasing depression and consuming pills and mouthwash. Psychiatrist has consulted hospitalist team for medical management. Major depressive disorder - Management per psychiatry team. Continue current treatment. Hypertension, chronic: -Blood pressure has been very labile and mostly normotensive. I predict that her occasional spike in blood pressure most likely due to agitation. We'll continue her current regimen. Claudication secondary to PVD history: -Obtain records from previous treatment plan and surgeries in [place]. Supportive care. On aspirin. Alcohol, tobacco and cocaine abuse: - Encouraged cessation, counseled on negative effect on health and disease process. Continue Nicotine patch. Placed on CIWA protocol and monitor for withdrawals. Seizure and fall precautions. Continue thiamine and multivitamin. Hyperlipidemia -Continue Atorvastatin. lipid panel acceptable, HDL 55, LDL 61, TG 290. Hyponatremia: -Probably secondary to alcoholism. Improved. Symptoms now 132. She is asymptomatic. DVT Prophylaxis: Ambulation Discharge Planning Patient has been medically stable. will sign off. Reconsult if needed. Violet Minor MD Apr 27, 2017 15:30
[2017-04-27 16:41] VITALS: BP 148/69; PULSE 66; RESP 18; TEMP 98; O2SAT 98
[2017-04-27] MEDS: ATORVASTATIN 10 MG TAB PO SCH (20:09)
[2017-04-27] MEDS: traZODone HCL 50 MG TAB PO SCH (20:48)
[2017-04-28 05:55] VITALS: BP 145/89; PULSE 76; RESP 16; TEMP 97.9; O2SAT 97
[2017-04-28] MEDS: NICOTINE 21 MG/24 HR PATCH T-DERMAL SCH (08:31)
[2017-04-28] MEDS: ASPIRIN 81 MG CHEW TAB CHEW SCH (08:32)
[2017-04-28] MEDS: FOLIC ACID 1 MG TAB PO SCH (08:32)
[2017-04-28] MEDS: ESCITALOPRAM OXALATE 20 MG TAB PO SCH (08:32)
[2017-04-28] MEDS: THIAMINE HCL 100 MG TAB PO SCH (08:32)
[2017-04-28] MEDS: LISINOPRIL 10 MG TAB PO SCH (08:32)
[2017-04-28] MEDS: ATENOLOL 100 MG TAB PO SCH (08:34)
[2017-04-28] MEDS: REMOVE OLD PATCH T-DERMAL SCH (08:34)
[2017-04-28] MEDS: ACETAMINOPHEN 325 MG TAB PO PRN (09:24)
[2017-04-28] MEDS ORDERED: ASPI81CH25 CHEW (10:02)
[2017-04-28] MEDS ORDERED: ESCI20TA PO (10:02)
[2017-04-28] MEDS ORDERED: ATEN100T PO (10:02)
[2017-04-28] MEDS ORDERED: FOLI1TAB6 PO (10:02)
[2017-04-28] MEDS ORDERED: LIPI10TA PO (10:02)
[2017-04-28] MEDS ORDERED: TRAZ50TA12 PO (10:02)
[2017-04-28] MEDS ORDERED: GNP100TA3 PO (10:02)
[2017-04-28] MEDS ORDERED: LISI10TA3 PO (10:02)
[2017-04-28] MEDS ORDERED: AMLO10 PO (10:02)
--- NOTE | 2017-04-28 14:18 | PD.TTN ---
Patient Problems 1. Discharge planning 2. Medication compliance 3. Knowledge deficit 4. Lack of coping skills Progress Toward Goals Provider Present: Dr. Oren Basilio Provider Input: Meets criteria 04/23/17 Doctor is continuing CIWA to Friday benefit from stable living situation/ needs placement 04/28/17 patient is stable and ready for discharge if placement is arranged Nurse(s) Input: Isaac: is crying and depressed that she is homeless 04/23/17 Jihan: med seeking and cooperative , aware of substance abuse issues Psychiatric Counselors Present: Clarisse Echeverria LCSW Psych Therapist Input: She can benefit from [facility] [employer] or [facility] 04/23/17 ambivalent with this counselor, not looking for substance abuse but wanting an HALF-WAY but a specific location appearing to find to be in a certain area [place] the city discussed [facility] [place] as an alternative 04/28/17 patient is able to go to [facility] today but need to have Xray for TB results faxed and scripts with [id number] before patient can go Group Spec/RT/OT/DALTON Present: KRYSTLE Dempsey Group Spec/RT/OT/DALTON Input: 04/23/17 attended Brandon appropriate requires encouragement 04/28/17 limited engagement Occupational Therapist Input: Gordon: minimal participation in groups Clarisse Echeverria LCSW Apr 28, 2017 14:18
--- NOTE | 2017-04-28 14:18 | PD.TTN ---
Patient Problems 1. Discharge planning 2. Medication compliance 3. Knowledge deficit 4. Lack of coping skills Progress Toward Goals Provider Present: Dr. Oren Basilio Provider Input: Meets criteria 04/23/17 Doctor is continuing CIWA to Friday benefit from stable living situation/ needs placement 04/28/17 patient is stable and ready for discharge if placement is arranged Nurse(s) Input: Isaac: is crying and depressed that she is homeless 04/23/17 Jihan: med seeking and cooperative , aware of substance abuse issues Psychiatric Counselors Present: Clarisse Echeverria LCSW Psych Therapist Input: She can benefit from [facility] [employer] or [facility] [place] 04/23/17 ambivalent with this counselor, not looking for substance abuse but wanting an [facility] but a specific location appearing to find to be in a certain area of the city discussed [facility] [place] as an alternative 04/28/17 patient is able to go to [facility] today but need to have Xray for TB results faxed and scripts with [id number] before patient can go Group Spec/RT/OT/DALTON Present: KRYSTLE Dempsey Group Spec/RT/OT/DALTON Input: 04/23/17 attended Brandon appropriate requires encouragement 04/28/17 limited engagement Occupational Therapist Input: Gordon: minimal participation in groups Clarisse Echeverria LCSW Apr 28, 2017 14:18
--- NOTE | 2017-04-28 14:18 | PD.TTN ---
Patient Problems 1. Discharge planning 2. Medication compliance 3. Knowledge deficit 4. Lack of coping skills Progress Toward Goals Provider Present: Dr. Oren Basilio Provider Input: Meets criteria 04/23/17 Doctor is continuing CIWA to Friday benefit from stable living situation/ needs placement 04/28/17 patient is stable and ready for discharge if placement is arranged Nurse(s) Input: Isaac: is crying and depressed that she is homeless 04/23/17 Jihan: med seeking and cooperative , aware of substance abuse issues Psychiatric Counselors Present: Clarisse Echeverria LCSW Psych Therapist Input: She can benefit from [facility] [employer] or [facility] [employer] [facility] [place] 04/23/17 ambivalent with this counselor, not looking for substance abuse but wanting an RETIREMENT but a specific location appearing to find to be in a certain area of the city discussed [facility] [place] as an alternative 04/28/17 patient is able to go to [facility] today but need to have Xray for TB results faxed and scripts with [id number] before patient can go Group Spec/RT/OT/DALTON Present: KRYSTLE eDmpsey Group Spec/RT/OT/DALTON Input: 04/23/17 attended Brandon appropriate requires encouragement 04/28/17 limited engagement Occupational Therapist Input: Godron: minimal participation in groups Clarisse Echeverria LCSW Apr 28, 2017 14:18
--- NOTE | 2017-04-28 16:26 | HHI.DS ---
Psychiatry Discharge Summary Inpatient Psychiatric care?: Yes Advance Directive: No Reason Not Provided: patient has Mental Health AdvanceDirective: No Health Care Proxy: No Admission Admission Date Apr 19, 2017 at 14:07 Admission Diagnosis: (1) Major depressive disorder, recurrent severe without psychotic features ICD Code: F33.2 - Major depressive disorder, recurrent severe without psychotic features (2) Cocaine abuse ICD Code: F14.10 - Cocaine abuse, uncomplicated (3) Alcohol use disorder ICD Code: F10.99 - Alcohol use, unspecified with unspecified alcohol-induced disorder Brief History Ms. Dave is a 61-year-old female with a reported history of depression and anxiety as well as ADHD who presents under a Ibarra act by law enforcement alleging that the patient was observed by her roommate consuming pills and mouthwash. Patient's urine toxicology was positive for cocaine on presentation here and her alcohol level was 286. Reviewing the electronic medical record, the only previous psychiatric contacts that I see within our system is an evaluation by the psychiatric nurse practitioner in the ED about 1 year ago. Patient seen and examined. Chart reviewed. Case discussed with nurse in the J- pod. On my examination today, the patient presents as quite disheveled and appears older than stated age. She says that she has been feeling increasingly depressed because of her medical issues and "thinking more and more about how to kill myself." She now denies that the presenting overdose was suicidal in nature, saying that she just took an extra atenolol because she was feeling quite nervous, but she does endorse ongoing suicidal ideation with plans to walk into the ocean. She is extremely tearful and dysphoric. She repeatedly says that she cannot live like this anymore. Sleep is poor. Appetite is poor. She is anhedonic. Low energy. Hopelessness present. No hypomanic or manic symptoms. Denies audiovisual hallucinations. No delusional material. Somewhat medication seeking for stimulants. Remainder of the psychiatric ROS is negative. No acute physical complaints. Past psychiatric history: Patient reports previous psychiatric diagnoses as noted above. Formerly followed with Dr. Potts but is not currently under any psychiatric care. Denies any history of psychiatric admissions or suicide attempts. Tobacco Use In Past 30 Days: 5 or More Cigarettes/Day Alcohol Use: 4 or More Times Per Week Hospital Course Patient is 62-year-old woman, currently homeless, unemployed, with a past psychiatric history of depression, anxiety, alcohol use disorder, no previous psychiatric hospitalizations or suicide attempts who was brought under Ibarra act for depression since ideations with blood alcohol level being 286 and positive for cocaine on recent urine toxicology. Patient was admitted to the inpatient psychiatric unit for further evaluation and management. Patient was started on excitalopram 10g PO daily and titrated up to 20mg PO daily, trazodone 50mg PO HS and titrated up to 150mg HS, continued on CIWA protocol which she was not noted to have experienced symptoms of withdrawal during admission. She responded well to treatment with noted improvement of mood, hopeful and motivated to reach full remission from alcohol use and maintain sobriety. Patient was noted to be cooperative with staff, noted to be interactive with peers and staff and was progressively active in groups and activities. She had improvement of mood, no longer endorsing depressive symptoms nor suicidal ideation. Upon discharge patient reported feeling better and motivated to continue outpatient treatment rehabilitation for alcohol use, denied any perceptual disturbances nor suicidal ideations or homicidal ideations. Patient agreed to continue treatment and follow up appointments for continuity of care. Patient advised to call 911 or go nearest ED in case of emergency. Patient agreed with plan. Results Blood Pressure 145 / 89 Vital Signs Date Time Temp Pulse Resp B/P (MAP) Pulse Ox O2 Delivery O2 Flow Rate FiO2 04/28/17 05:55 97.9 76 16 145/89 (107) 97 Laboratory Results Test 04/20/17 11:08 Cholesterol Level 174 MG/DL (120-200) HDL Cholesterol 55.4 MG/DL (40.0-60.0) Hemoglobin A1c 5.4 % (4.3-6.0) LDL Cholesterol 61 MG/DL (0-99) Triglycerides Level 290 MG/DL (42-150) Summary of Procedures None Imaging Last Impressions Chest X-Ray 04/24/17 0000 Signed Impressions: Service Date/Time: March 17:20 - CONCLUSION: 1. The lungs are clear. 2. Descending aorta aneurysm and distal thoracic aortic stent. Charles Horner MD Pending results at discharge: No Medications # of Antipsychotic meds at D/C: 0 Approp Antipsych med options 1 - Minimum of three failed multiple trials of monotherapy. 2 - Documented plan to taper to monotherapy due to previous use of multiple meds OR cross-taper in progress at D/C. 3 - Documentation of augmentation of Clozapine. 4 - Justification other than those listed in allowable values 1-3, document here : Discharge Discharge Date: Apr 28, 2017 Discharge Diagnosis: (1) Major depressive disorder, recurrent severe without psychotic features ICD Code: F33.2 - Major depressive disorder, recurrent severe without psychotic features (2) Cocaine abuse ICD Code: F14.10 - Cocaine abuse, uncomplicated (3) Alcohol use disorder ICD Code: F10.99 - Alcohol use, unspecified with unspecified alcohol-induced disorder Pt Condition on Discharge: Stable Discharge Disposition: [facility] Discharge Instructions Diet Instructions: As Tolerated, No Restrictions Activities you can perform: Regular-No Restrictions Scheduled Appointment: Facility provider Appointment Date: Apr 29, 2017 Appointment Time: 08:00 Discharge Time > 30 minutes Mental Status Examination Appearance: Appropriate Consciousness: Alert Orientation: x4 Motor Activity: Normal gait Speech: Unremarkable Language: Adequate Fund of Knowledge: Adequate Attention and Concentration: Adequate Memory: Unremarkable Mood: Appropriate Affect: Appropriate Thought Process & Associations: Intact, Goal directed, Linear Thought Content: Appropriate Hallucination Type: None Delusion Type: None Suicidal Ideation: No Suicidal Plan: No Suicidal Intention: No Homicidal Ideation: No Homicidal Plan: No Homicidal Intention: No Insight: Fair Judgment: Impulsive Discharge/Advance Care Plan Health Problems: (1) Major depressive disorder, recurrent severe without psychotic features (2) Cocaine abuse (3) Alcohol abuse Goals to promote your health * To prevent worsening of your condition and complications * To maintain your health at the optimal level Directions to meet your goals Take your medications as prescribed Follow your dietary instruction Follow activity as directed Keep your appointments as scheduled Take your immunizations and boosters as scheduled If your symptoms worsen call your PCP, if no PCP go to Urgent Care Center or Emergency Room For / questions related to your inpatient stay or results of tests pending at discharge, please contact Dr. Bayron Basilio at Smoking is Dangerous to Your Health. Avoid second hand smoking Bayron Basilio MD Apr 28, 2017 16:25
== END 2017-04-28 10:45 | DRG 885 ==
LOC: NEPD 01:32 → NEDA 04-19 14:07 → H250 04-19 14:56 → H260 04-25 17:40
PROVIDERS: ADMIT Student in an Organized Health Care Education/Training Program; ATTEND Student in an Organized Health Care Education/Training Program
DX: F33.2 Major depressive disorder, recurrent severe without psychotic features (principal); E87.1 Hypo-osmolality and hyponatremia; I10 Essential (primary) hypertension; F14.10 Cocaine abuse, uncomplicated; F10.129 Alcohol abuse with intoxication, unspecified; Y90.8 Blood alcohol level of 240 mg/100 ml or more; E86.0 Dehydration; F17.210 Nicotine dependence, cigarettes, uncomplicated; Z59.0 Homelessness; I73.9 Peripheral vascular disease, unspecified; G89.29 Other chronic pain; M54.9 Dorsalgia, unspecified; E78.5 Hyperlipidemia, unspecified
CPT/HCPCS: 71020; 80048; 80053; 80061; 80307; 83036; 84443; 85025; 96360; 96361; J7030; Q0163

== ENCOUNTER 2017-05-12 12:45 | Emergency (ER) | payer OTHER, MEDICAID ==
[~2017-05-12] VITALS: Ht 154.9 cm; Wt 65.5 kg
[2017-05-12] VITALS (11 sets, daily range): BP systolic 62–156; BP diastolic 32–94; PULSE 82–117; RESP 16–22; TEMP 97.8; O2SAT 94–100
[~2017-05-12 12:45] MED LIST changes: -ASPI-110 PO; +ASPI81CH25 CHEW; +ESCI20TA PO; +FOLI1TAB6 PO; +IBUP1TAB7 PO; +LISI10TA3 PO; +THIA100 PO; +TRAZ50TA12 PO
[2017-05-12] MEDS ORDERED: SODIUM CHLOR 0.9% 1000 ML INJ 1,000 ML IV ONE ×3 (13:24→13:45)
[2017-05-12] MEDS ORDERED: SODIUM CHLORIDE 0.9% FLUSH 10 ML FLUSH IVF PRN (13:30)
--- NOTE | 2017-05-12 13:30 | PD ---
HPI Chief Complaint: Psychiatric Symptoms Time Seen by Provider: 13:13 Travel History International Travel<30 days: No Contact w/Intl Traveler<30days: No Traveled to known affect area: No History of Present Illness HPI The patient is a 61-year-old female who presents to the emergency department as a Ibrara act. The patient was placed under a Ibarra act for trying to kill herself by drinking alcohol. The patient states she drank 4 small natural ice beers and then drank half of a large bottle of mouthwash and an attempt to kill herself. The patient does have a history of alcohol abuse and was recently admitted to the hospital March 2017 for similar symptoms. She does have a history of alcohol abuse and suicidal ideation. The patient states she has no family in the area and is trying to get into the [facility] house, however, they have no current rooms available. The patient denies any current physical complaints including headache, chest pain, shortness breath, nausea, vomiting, or abdominal pain. She denies any illicit drug use. Symptoms are moderate, exacerbated after ingesting alcohol, and there are no current alleviating factors. PFSH Past Medical History Hx Anticoagulant Therapy: Yes (BABY ASPIRIN) Anxiety: Yes Depression: Yes Cancer: No Cardiovascular Problems: No High Cholesterol: Yes Diabetes: No Diminished Hearing: No Endocrine: No Headaches: Yes (Patient stated she has headaches suboccipital in nature) Hypertension: Yes Immune Disorder: No Musculoskeletal: Yes (LEG PAIN) Psychiatric: Yes (Alcohold detoxification) Immunizations Current: Yes Seizures: No ?: Not Menopausal: Yes Past Surgical History Abdominal Surgery: Yes AICD: No Appendectomy: Yes Arteriovenous Shunt: No Cardiac Surgery: Yes (aorta BYPASS) Ear Surgery: No Endocrine Surgery: No Eye Surgery: No Genitourinary Surgery: No Gynecologic Surgery: No Insulin Pump: No Joint Replacement: No Oral Surgery: No Pacemaker: No Tonsillectomy: Yes Other Surgery: Yes Social History Alcohol Use: Yes Tobacco Use: Yes (1 PPD) Substance Use: Yes (Drug of Choice - ETOH Abuse) Allergies-Medications (Allergen,Severity, Reaction): Coded Allergies: No Known Allergies (Unverified Adverse Reaction, Unknown, 05/12/17) Reported Meds & Prescriptions Reported Meds & Active Scripts Active Gnp Vitamin B-1 (Thiamine HCl) 100 Mg Tab 100 Mg PO DAILY 30 Days Folic Acid 1 Mg Tablet 1 Mg PO DAILY 30 Days Trazodone (Trazodone HCl) 50 Mg Tab 150 Mg PO HS 30 Days Escitalopram (Escitalopram Oxalate) 20 Mg Tab 20 Mg PO DAILY 30 Days Aspirin Low Strength (Aspirin) 81 Mg Chew 81 Mg CHEW DAILY 30 Days Lipitor (Atorvastatin Calcium) 10 Mg Tab 10 Mg PO HS 30 Days Reported Wellbutrin Xl 24 HR (Bupropion HCl) 300 Mg Tab 300 Mg PO DAILY Cymbalta DR (Duloxetine HCl) 60 Mg Capdr 60 Mg PO BID Review of Systems Except as stated in HPI: all other systems reviewed are Neg General / Constitutional: No: Fever Cardiovascular: No: Chest Pain or Discomfort Respiratory: No: Shortness of Breath Gastrointestinal: No: Nausea, Vomiting, Abdominal Pain Psychiatric: Positive: Depression, Suicidal Ideations, Substance Abuse Physical Exam Narrative GENERAL: Awake, alert, pleasant 61-year-old female who appears her stated age and is in no acute respiratory distress. Poor hygiene noted. SKIN: Focused skin assessment warm/dry. HEAD: Atraumatic. Normocephalic. EYES: Pupils equal and round. Pupils are 3 mm bilateral and reactive. ENT: No nasal bleeding or discharge. Mucous membranes pink and moist. Poor dentition. NECK: Trachea midline. No JVD. CARDIOVASCULAR: Regular rate and rhythm. No murmur appreciated. Heart rate in the 90s. RESPIRATORY: No accessory muscle use. Clear to auscultation. Breath sounds equal bilaterally. GASTROINTESTINAL: Abdomen soft, non-tender, nondistended. Well-healed midline scar and right mid abdominal scar. MUSCULOSKELETAL: No obvious deformities. No clubbing. No cyanosis. No edema. NEUROLOGICAL: Awake and alert. No obvious cranial nerve deficits. Motor grossly within normal limits. Normal speech. Oriented to person, place, month, and year. PSYCHIATRIC: Appears somewhat intoxicated. Data Data Last Documented VS Vital Signs Date Time Temp Pulse Resp B/P (MAP) Pulse Ox O2 Delivery O2 Flow Rate FiO2 05/12/17 15:28 117 22 139/76 (97) 98 Room Air 05/12/17 13:23 97.8 Orders Orders Electrocardiogram (05/12/17 13:24) Complete Blood Count With Diff (05/12/17 13:24) Comprehensive Metabolic Panel (05/12/17 13:24) Prothrombin Time / Inr (Pt) (05/12/17 13:24) Act Partial Throm Time (Ptt) (05/12/17 13:24) Urinalysis - C+S If Indicated (05/12/17 13:24) Iv Access Insert/Monitor (05/12/17:24) Ecg Monitoring (05/12/17:24) Oximetry (05/12/17:24) Sodium Chloride 0.9% Flush (Ns Flush) (05/12/17 13:30) Sodium Chlor 0.9% 1000 Ml Inj (Ns 1000 M (05/12/17 13:24) Call Poison Control (05/12/17:24) Drug Screen, Random Urine (05/12/17:) Alcohol (Ethanol) (05/12/17:24) Salicylates (Aspirin) (05/12/17:) Psych Screen (05/12/17:25) Sodium Chlor 0.9% 1000 Ml Inj (Ns 1000 M (05/12/17 13:45) Sodium Chlor 0.9% 1000 Ml Inj (Ns 1000 M (05/12/17 13:45) Potassium Chloride Eff (K-Lyte Cl Eff) (05/12/17 14:30) Labs Laboratory Tests Test 05/12/17 13:30 White Blood Count 8.8 TH/MM3 Red Blood Count 4.47 MIL/MM3 Hemoglobin 12.8 GM/DL Hematocrit 37.4 % Mean Corpuscular Volume 83.6 FL Mean Corpuscular Hemoglobin 28.6 PG Mean Corpuscular Hemoglobin Concent 34.2 % Red Cell Distribution Width 15.9 % Platelet Count 257 TH/MM3 Mean Platelet Volume 7.4 FL Neutrophils (%) (Auto) 70.6 % Lymphocytes (%) (Auto) 20.5 % Monocytes (%) (Auto) 8.1 % Eosinophils (%) (Auto) 0.4 % Basophils (%) (Auto) 0.4 % Neutrophils # (Auto) 6.2 TH/MM3 Lymphocytes # (Auto) 1.8 TH/MM3 Monocytes # (Auto) 0.7 TH/MM3 Eosinophils # (Auto) 0.0 TH/MM3 Basophils # (Auto) 0.0 TH/MM3 CBC Comment DIFF FINAL Differential Comment Prothrombin Time 9.6 SEC Prothromb Time International Ratio 0.9 RATIO Activated Partial Thromboplast Time 25.4 SEC Blood Urea Nitrogen 14 MG/DL Creatinine 0.83 MG/DL Random Glucose 84 MG/DL Total Protein 6.8 GM/DL Albumin 3.6 GM/DL Calcium Level 8.5 MG/DL Alkaline Phosphatase 75 U/L Aspartate Amino Transf (AST/SGOT) 74 U/L Alanine Aminotransferase (ALT/SGPT) 43 U/L Total Bilirubin 0.5 MG/DL Sodium Level 132 MEQ/L Potassium Level 2.9 MEQ/L Chloride Level 95 MEQ/L Carbon Dioxide Level 27.9 MEQ/L Anion Gap 9 MEQ/L Estimat Glomerular Filtration Rate 70 ML/MIN Salicylates Level 3.0 MG/DL Ethyl Alcohol Level 106 MG/DL [facility] Medical Decision Making Medical Screen Exam Complete: Yes Emergency Medical Condition: Yes Medical Record Reviewed: Yes Interpretation(s) EKG reveals sinus rhythm with occasional supraventricular premature complex. QTC 458 ms. Laboratory Tests Test 05/12/17 13:30 White Blood Count 8.8 TH/MM3 Red Blood Count 4.47 MIL/MM3 Hemoglobin 12.8 GM/DL Hematocrit 37.4 % Mean Corpuscular Volume 83.6 FL Mean Corpuscular Hemoglobin 28.6 PG Mean Corpuscular Hemoglobin Concent 34.2 % Red Cell Distribution Width 15.9 % Platelet Count 257 TH/MM3 Mean Platelet Volume 7.4 FL Neutrophils (%) (Auto) 70.6 % Lymphocytes (%) (Auto) 20.5 % Monocytes (%) (Auto) 8.1 % Eosinophils (%) (Auto) 0.4 % Basophils (%) (Auto) 0.4 % Neutrophils # (Auto) 6.2 TH/MM3 Lymphocytes # (Auto) 1.8 TH/MM3 Monocytes # (Auto) 0.7 TH/MM3 Eosinophils # (Auto) 0.0 TH/MM3 Basophils # (Auto) 0.0 TH/MM3 CBC Comment DIFF FINAL Differential Comment Prothrombin Time 9.6 SEC Prothromb Time International Ratio 0.9 RATIO Activated Partial Thromboplast Time 25.4 SEC Blood Urea Nitrogen 14 MG/DL Creatinine 0.83 MG/DL Random Glucose 84 MG/DL Total Protein 6.8 GM/DL Albumin 3.6 GM/DL Calcium Level 8.5 MG/DL Alkaline Phosphatase 75 U/L Aspartate Amino Transf (AST/SGOT) 74 U/L Alanine Aminotransferase (ALT/SGPT) 43 U/L Total Bilirubin 0.5 MG/DL Sodium Level 132 MEQ/L Potassium Level 2.9 MEQ/L Chloride Level 95 MEQ/L Carbon Dioxide Level 27.9 MEQ/L Anion Gap 9 MEQ/L Estimat Glomerular Filtration Rate 70 ML/MIN Salicylates Level 3.0 MG/DL Ethyl Alcohol Level 106 MG/DL Differential Diagnosis Differential diagnosis includes alcohol intoxication, methanol ingestion, isopropyl ingestion, depressive disorder NOS, substance induced mood disorder, electrolyte abnormality, dehydration. Narrative Course IV was established, labs are drawn and sent, and the patient was placed on cardiac telemetry monitoring and continuous pulse oximetry monitoring. EKG was ordered and interpreted. Poison control was contacted. The patient was administered 1 L of IV fluids. EKG was ordered and interpreted. The patient's blood pressure was initially low with a systolic in the 70s, he responded IV fluids and came up to 139/76 at 3:44 PM. The patient's potassium is low at 2.9 , was replaced orally. The patient tolerated gram crackers and fluids without difficulty. She is medically cleared to be evaluated by psychiatry. Disposition as per psych. Diagnosis Primary Impression: Substance induced mood disorder Condition: Stable Dre Persaud MD May 12, 2017 13:30
[2017-05-12 13:50] LABS: AUTOMATED NEUTROPHIL # 6.2 TH/MM3 (1.8-7.7); BASOPHIL % 0.4 % (0.0-2.0); EOSINOPHIL % 0.4 % (0.0-4.0); HEMATOCRIT 37.4 % (35.0-46.0); HEMO FLAGS DIFF FINAL; LYMPH % 20.5 % (9.0-44.0); LYMPHOCYTE # 1.8 TH/MM3 (1.0-4.8); MEAN CELL VOLUME 83.6 FL (80.0-100.0); MEAN CORPUSCULAR HEMOGLOBIN 28.6 PG (27.0-34.0); MEAN CORPUSCULAR HGB CONC 34.2 % (32.0-36.0); MONO % 8.1 % (0.0-8.0); NEUT % 70.6 % (16.0-70.0); PLATELET COUNT 257 TH/MM3 (150-450); RED BLOOD COUNT 4.47 MIL/MM3 (4.00-5.30); RED CELL DISTRIBUTION WIDTH 15.9 % (11.6-17.2); WHITE BLOOD COUNT 8.8 TH/MM3 (4.0-11.0)
[2017-05-12 13:57] LABS: APTT (PATIENT) 25.4 SEC (24.3-30.1); INTERNATIONAL NORMALIZED RATIO 0.9 RATIO; PROTHROMBIN TIME - PATIENT 9.6 SEC (9.8-11.6)
[2017-05-12 14:23] LABS: ALKALINE PHOSPHATASE 75 U/L (45-117); ALT (GPT) 43 U/L (10-53); AST (GOT) 74 U/L (15-37); BICARBONATE 27.9 MEQ/L (21.0-32.0); BLOOD UREA NITROGEN 14 MG/DL (7-18); CHLORIDE 95 MEQ/L (98-107); GLOMERULAR FILTRATION RATE 70 ML/MIN (>89); SODIUM (NA) 132 MEQ/L (136-145); TOTAL BILIRUBIN ADULT 0.5 MG/DL (0.2-1.0)
[2017-05-12 14:24] LABS: ALCOHOL 106 MG/DL (0-5); ANION GAP 9 MEQ/L (5-15)
[2017-05-12 14:27] LABS: POTASSIUM 2.9 MEQ/L (3.5-5.1)
[2017-05-12] MEDS ORDERED: POTASSIUM CHLORIDE 25 MEQ EFFERVESCENT TAB PO ONE (14:30)
[2017-05-12 23:34] LABS: BACTERIA, URINE OCC /hpf; BLOOD, URINE TRACE (NEG); COMMENT (UR) CULTURE INDICATED; CULTURE IF INDICATED CULTURE INDICATED; GLUCOSE,URINE NEG (NEG); KETONE, URINE NEG (NEG); MUCUS URINE FEW /lpf (OCC); NITRITE,URINE NEG (NEG); PH, URINE 6.5 (5.0-8.5); SQUAMOUS EPITHELIAL CELL URINE 4 /hpf (0-5); URINE COLOR YELLOW (YELLW/STRAW)
[2017-05-13 06:12] VITALS: BP 124/56; PULSE 82; RESP 18
[2017-05-13 10:00] VITALS: BP 170/74; PULSE 92; RESP 18
--- NOTE | 2017-05-13 12:43 | PD ---
History of Present Illness Chief Complaint: Psychiatric Symptoms Time Seen by Provider: 12:00 Travel History International Travel<30 Days: No Contact w/Intl Traveler<30days: No Known affected area: No Legal Status Legal Status: Ibarra Act Ibarra Act Signed By: Niki Felix History of Present Illness: History of Present Illness HPI The patient is a 61-year-old female with history of alcohol abuse as well as history of depression and anxiety who presents to the emergency department as a Ibarra act initiated by law enforcement. The Ibarra act alleges that she reported she wanted to kill herself by drinking mouthwash. They found a half empty bottle of mouthwash in her purse. She has a history of drinking mouthwash in the past. Her blood alcohol level on arrival to the emergency department was 106 and her toxicology is positive for cocaine. The patient does have a history of alcohol abuse and was recently admitted to the hospital in March 2017 for similar symptoms. She was discharged to the [facility] which is an assisted living facility but she last fair because she didn't like the living conditions, reported there was no hot water, and that she didn't like the food there. From there she went to a motel intention she ran out of money. She reported to the psychiatric screener that she has been trying to get into the [facility] which is a sober living facility but they have no availability of beds at this time. The patient was monitored here in a secure environment over an extended period of time and she presented no behavioral dysregulation and presented no suicidality. There is no indication that she is psychotic or manic. Not suicidal or homicidal She is asking help in getting into [facility]. Has a contact there by the name of Zenon Ayala. When discharge planning was discussed she did report that she had no place to go. PFSH Past Medical History Hx Anticoagulant Therapy: Yes (BABY ASPIRIN) Anxiety: Yes Depression: Yes Cancer: No Cardiovascular Problems: No High Cholesterol: Yes Diabetes: No Diminished Hearing: No Endocrine: No Headaches: Yes (Patient stated she has headaches suboccipital in nature) Hypertension: Yes Immune Disorder: No Musculoskeletal: Yes (LEG PAIN) Psychiatric: Yes ([facility] detoxification) Immunizations Current: Yes Seizures: No ?: Not Menopausal: Yes Past Surgical History Abdominal Surgery: Yes AICD: No Appendectomy: Yes Arteriovenous Shunt: No Cardiac Surgery: Yes (aorta BYPASS) Ear Surgery: No Endocrine Surgery: No Eye Surgery: No Genitourinary Surgery: No Gynecologic Surgery: No Insulin Pump: No Joint Replacement: No Oral Surgery: No Pacemaker: No Tonsillectomy: Yes Other Surgery: Yes Psychiatric History Psychiatric History Hx Psychiatric Treatment: [facility] FOR DEPRESSION FROM Mar TO Mar History of Inpatient Treatment: Yes Guns or firearms in home: No Social History Single, unemployed, on disability, currently homeless. Hx Alcohol Use: Yes Hx Tobacco Use: Yes (1 PPD) Hx Substance Use: Yes Substance Use Type: Alcohol, Nicotine/Cigarettes, Cocaine Hx of Substance Use Treatment: Yes (reported she has had multiple admissions) Family Psychiatric History Negative Allergies-Medications (Allergen,Severity, Reaction): Coded Allergies: No Known Allergies (Unverified Adverse Reaction, Unknown, 05/12/17) Reported Meds & Prescriptions Reported Meds & Active Scripts Active Gnp Vitamin B-1 (Thiamine HCl) 100 Mg Tab 100 Mg PO DAILY 30 Days Folic Acid 1 Mg Tablet 1 Mg PO DAILY 30 Days Trazodone (Trazodone HCl) 50 Mg Tab 150 Mg PO HS 30 Days Escitalopram (Escitalopram Oxalate) 20 Mg Tab 20 Mg PO DAILY 30 Days Aspirin Low Strength (Aspirin) 81 Mg Chew 81 Mg CHEW DAILY 30 Days Lipitor (Atorvastatin Calcium) 10 Mg Tab 10 Mg PO HS 30 Days Reported Wellbutrin Xl 24 HR (Bupropion HCl) 300 Mg Tab 300 Mg PO DAILY Cymbalta DR (Duloxetine HCl) 60 Mg Capdr 60 Mg PO BID Mental Status Examination Appearance: Dirty (disheveled female who appears older than stated age.) Consciousness: Alert Orientation: x4 Motor Activity: Normal gait Speech: Unremarkable Language: Adequate Fund of Knowledge: Adequate Attention and Concentration: Adequate Memory: Unremarkable Mood: Appropriate Affect: Appropriate Thought Process & Associations: Intact, Logical, Goal directed Thought Content: Appropriate Hallucination Type: None Delusion Type: None Suicidal Ideation: No Suicidal Plan: No Suicidal Intention: No Homicidal Ideation: No Homicidal Plan: No Homicidal Intention: No Insight: Poor Judgment: Impulsive MDM Medical Decision Making Medical Record Reviewed: Yes Assessment/Plan The patient is a 61-year-old female with history of alcohol abuse, cocaine abuse as well as history of depression and anxiety who presents to the emergency department as a Ibarra act initiated by law enforcement. The Ibarra act alleges that she reported she wanted to kill herself by drinking mouthwash. They found a half empty bottle of mouthwash in her purse. She has a history of drinking mouthwash in the past. Her blood alcohol level on arrival to the emergency department was 106 and her toxicology is positive for cocaine. She was most recently discharged from [facility] psychiatric unit on April 28. She did not like the facility where she went to live, left our facility for a motel room until her money ran out. Also report she did not get her medications after discharge. Patient has been monitored for over twenty hours. She has not presented any suicidality. There is no indication that she is psychotic or manic. She is asking help in getting into [facility]. Has a contact there by the name of Zenon Ayala. This patient requires treatment for substance abuse and we are not license to provide such treatment. Unfortunately she has made some poor decisions and finds herself homeless at this time. I will have the case therapist assist her and will provide her with the address of the [facility]. She will be provided a bus fare to get there as well she is strongly encouraged to follow up with the [facility]. She is strongly encouraged to remain off substances. The Ibarra act is lifted. Psychiatrically clear for discharge. Orders Orders Electrocardiogram (05/12/17) Complete Blood Count With Diff (05/12/17) Comprehensive Metabolic Panel (05/12/17) Prothrombin Time / Inr (Pt) (05/12/17) Act Partial Throm Time (Ptt) (05/12/17) Urinalysis - C+S If Indicated (05/12/17:) Iv Access Insert/Monitor (05/12/17) Ecg Monitoring (05/12/17) Oximetry (05/12/17) Sodium Chloride 0.9% Flush (Ns Flush) (05/12/17:30) Sodium Chlor 0.9% 1000 Ml Inj (Ns 1000 M (11/13/17 13:24) Call Poison Control (05/12/17 13:24) Drug Screen, Random Urine (05/12/17 13:24) Alcohol (Ethanol) (05/12/17 13:24) Salicylates (Aspirin) (05/12/17 13:24) Psych Screen (05/12/17 13:25) Sodium Chlor 0.9% 1000 Ml Inj (Ns 1000 M (05/12/17 13:45) Sodium Chlor 0.9% 1000 Ml Inj (Ns 1000 M (05/12/17 13:45) Potassium Chloride Eff (K-Lyte Cl Eff) (05/12/17 14:30) Urine Culture (05/12/17 22:47) Tylenol (Acetaminophen) (05/13/17 00:42) Diet Regular Basic (05/13/17 Breakfast) Results Vital Signs Date Time Temp Pulse Resp B/P (MAP) Pulse Ox O2 Delivery O2 Flow Rate FiO2 05/13/17 10:00 92 18 170/74 (106) Room Air 05/13/17 06:12 82 18 124/56 (78) 05/12/17 19:36 88 16 156/67 (96) 96 05/12/17 18:30 99 16 143/76 (98) 94 Room Air 05/12/17 17:56 108 16 132/60 (84) 97 Room Air 05/12/17 16:46 96 16 119/51 (73) 99 Room Air 05/12/17 15:28 117 22 139/76 (97) 98 Room Air 05/12/17 15:21 84 20 71/45 (54) 98 Room Air 05/12/17 14:57 86 16 62/32 (42) 98 Room Air 05/12/17 14:24 84 18 79/43 (55) 96 Room Air 05/12/17 13:36 18 99 Room Air 05/12/17 13:23 95 16 05/12/17 13:23 97.8 82 17 78/46 (57) 100 Room Air 05/12/17 13:10 97.8 95 16 77/94 (88) 94 Laboratory Tests Test 05/12/17 13:30 05/12/17 22:47 White Blood Count 8.8 Red Blood Count 4.47 Hemoglobin 12.8 Hematocrit 37.4 Mean Corpuscular Volume 83.6 Mean Corpuscular Hemoglobin 28.6 Mean Corpuscular Hemoglobin Concent 34.2 Red Cell Distribution Width 15.9 Platelet Count 257 Mean Platelet Volume 7.4 Neutrophils (%) (Auto) 70.6 Lymphocytes (%) (Auto) 20.5 Monocytes (%) (Auto) 8.1 Eosinophils (%) (Auto) 0.4 Basophils (%) (Auto) 0.4 Neutrophils # (Auto) 6.2 Lymphocytes # (Auto) 1.8 Monocytes # (Auto) 0.7 Eosinophils # (Auto) 0.0 Basophils # (Auto) 0.0 CBC Comment DIFF FINAL Differential Comment Prothrombin Time 9.6 Prothromb Time International Ratio 0.9 Activated Partial Thromboplast Time 25.4 Blood Urea Nitrogen 14 Creatinine 0.83 Random Glucose 84 Total Protein 6.8 Albumin 3.6 Calcium Level 8.5 Alkaline Phosphatase 75 Aspartate Amino Transf (AST/SGOT) 74 Alanine Aminotransferase (ALT/SGPT) 43 Total Bilirubin 0.5 Sodium Level 132 Potassium Level 2.9 Chloride Level 95 Carbon Dioxide Level 27.9 Anion Gap 9 Estimat Glomerular Filtration Rate 70 Salicylates Level 3.0 Acetaminophen Level LESS THAN 2.0 Ethyl Alcohol Level 106 Urine Color YELLOW Urine Turbidity HAZY Urine pH 6.5 Urine Specific [place] 1.009 Urine Protein TRACE Urine Glucose (UA) NEG Urine Ketones NEG Urine Occult Blood TRACE Urine Nitrite NEG Urine Bilirubin NEG Urine Urobilinogen LESS THAN 2.0 Urine Leukocyte Esterase LARGE Urine RBC 27 Urine WBC 58 Urine Squamous Epithelial Cells 4 Urine Bacteria OCC Urine Mucus FEW Microscopic Urinalysis Comment CULTURE INDICATED Urine Opiates Screen NEG Urine Barbiturates Screen NEG Urine Amphetamines Screen NEG Urine Benzodiazepines Screen NEG Urine Cocaine Screen POS Urine Cannabinoids Screen NEG Date/Time Source Procedure Growth Status 05/12/17 22:47 Urine Clean Catch Urine Culture Pending Received Diagnosis Primary Impression: Substance induced mood disorder Psychiatrically Cleared: Yes Prescriptions Cephalexin (Keflex) 500 Mg Cap 500 MG PO Q12H for Infection for 10 Days, #20 CAP 0 Refills Prov: Gricelda MetzP 05/13/17 Disposition: 01 DISCHARGE HOME Condition: Stable Ronna Jung REA May 13, 2017 12:43
[2017-05-13] MEDS ORDERED: CEPH-460 PO (13:16)
--- NOTE | 2017-05-13 13:16 | PD ---
Physical Exam Date Seen by Provider: May 13, 2017 Narrative For full history and physical examination please see previous provider's note. Data Data Last Documented VS Vital Signs Date Time Temp Pulse Resp B/P (MAP) Pulse Ox O2 Delivery O2 Flow Rate FiO2 05/13/17 10:00 92 18 170/74 (106) Room Air 05/12/17 19:36 96 05/12/17 13:23 97.8 Orders Orders Electrocardiogram (05/12/17 13:24) Complete Blood Count With Diff (05/12/17:24) Comprehensive Metabolic Panel (05/12/17 13:24) Prothrombin Time / Inr (Pt) (05/12/17:24) Act Partial Throm Time (Ptt) (05/12/17:24) Urinalysis - C+S If Indicated (05/12/17 13:24) Iv Access Insert/Monitor (05/12/17 13:24) Ecg Monitoring (05/12/17 13:24) Oximetry (05/12/17 13:24) Sodium Chloride 0.9% Flush (Ns Flush) (05/12/17 13:30) Sodium Chlor 0.9% 1000 Ml Inj (Ns 1000 M (05/12/17 13:24) Call Poison Control (05/12/17 13:24) Drug Screen, Random Urine (05/12/17 13:24) Alcohol (Ethanol) (05/12/17 13:24) Salicylates (Aspirin) (05/12/17 13:24) Psych Screen (05/12/17 13:25) Sodium Chlor 0.9% 1000 Ml Inj (Ns 1000 M (05/12/17 13:45) Sodium Chlor 0.9% 1000 Ml Inj (Ns 1000 M (05/12/17 13:45) Potassium Chloride Eff (K-Lyte Cl Eff) (05/12/17 14:30) Urine Culture (05/12/17 22:47) Tylenol (Acetaminophen) (05/13/17 00:42) Diet Regular Basic (05/13/17 Breakfast) Diet Regular Basic (05/13/17 Lunch) Labs Laboratory Tests Test 05/12/17 13:30 05/12/17 22:47 White Blood Count 8.8 TH/MM3 Red Blood Count 4.47 MIL/MM3 Hemoglobin 12.8 GM/DL Hematocrit 37.4 % Mean Corpuscular Volume 83.6 FL Mean Corpuscular Hemoglobin 28.6 PG Mean Corpuscular Hemoglobin Concent 34.2 % Red Cell Distribution Width 15.9 % Platelet Count 257 TH/MM3 Mean Platelet Volume 7.4 FL Neutrophils (%) (Auto) 70.6 % Lymphocytes (%) (Auto) 20.5 % Monocytes (%) (Auto) 8.1 % Eosinophils (%) (Auto) 0.4 % Basophils (%) (Auto) 0.4 % Neutrophils # (Auto) 6.2 TH/MM3 Lymphocytes # (Auto) 1.8 TH/MM3 Monocytes # (Auto) 0.7 TH/MM3 Eosinophils # (Auto) 0.0 TH/MM3 Basophils # (Auto) 0.0 TH/MM3 CBC Comment DIFF FINAL Differential Comment Prothrombin Time 9.6 SEC Prothromb Time International Ratio 0.9 RATIO Activated Partial Thromboplast Time 25.4 SEC Blood Urea Nitrogen 14 MG/DL Creatinine 0.83 MG/DL Random Glucose 84 MG/DL Total Protein 6.8 GM/DL Albumin 3.6 GM/DL Calcium Level 8.5 MG/DL Alkaline Phosphatase 75 U/L Aspartate Amino Transf (AST/SGOT) 74 U/L Alanine Aminotransferase (ALT/SGPT) 43 U/L Total Bilirubin 0.5 MG/DL Sodium Level 132 MEQ/L Potassium Level 2.9 MEQ/L Chloride Level 95 MEQ/L Carbon Dioxide Level 27.9 MEQ/L Anion Gap 9 MEQ/L Estimat Glomerular Filtration Rate 70 ML/MIN Salicylates Level 3.0 MG/DL Acetaminophen Level LESS THAN 2.0 MCG/ML Ethyl Alcohol Level 106 MG/DL Urine Color YELLOW Urine Turbidity HAZY Urine pH 6.5 Urine Specific [place] 1.009 Urine Protein TRACE mg/dL Urine Glucose (UA) NEG mg/dL Urine Ketones NEG mg/dL Urine Occult Blood TRACE Urine Nitrite NEG Urine Bilirubin NEG Urine Urobilinogen LESS THAN 2.0 MG/DL Urine Leukocyte Esterase LARGE Urine RBC 27 /hpf Urine WBC 58 /hpf Urine Squamous Epithelial Cells 4 /hpf Urine Bacteria OCC /hpf Urine Mucus FEW /lpf Microscopic Urinalysis Comment CULTURE INDICATED Urine Opiates Screen NEG Urine Barbiturates Screen NEG Urine Amphetamines Screen NEG Urine Benzodiazepines Screen NEG Urine Cocaine Screen POS Urine Cannabinoids Screen NEG MDM Medical Record Reviewed: Yes Supervised Visit with ADARSH: No Narrative Course Patient is a 61-year-old female that presented to emergency department for psychiatric evaluation under Ibarra act for allegedly attempting to commit suicide by alcohol intoxication. She was seen and evaluated by emergency department physician, she was medically cleared. She was then transferred to the psychiatric pod where she was seen and evaluated by psychiatric nurse practitioner. Ibarra act was lifted. Patient was deemed safe competent to be discharged. She will be provided with a prescription for antibiotics for a urinary tract infection. She is encouraged to follow-up with the [facility]. She is encouraged to avoid excessive intake of alcohol. Patient is stable for discharge. Diagnosis Primary Impression: Substance induced mood disorder Additional Impression: Urinary tract infection Qualified Codes: N39.0 - Urinary tract infection, site not specified; R31.9 - Hematuria, unspecified Referrals: [facility] Patient Instructions: General Instructions, Polysubstance Abuse (ED), Urinary Tract Infection in Women (GEN) Additional Instruction: Follow-up with Jona Graham Avoid excessive intake of alcohol, do not drink mouthwash Complete full course of antibiotics as prescribed Return to emergency department for any new or worsening symptoms Increase oral fluid intake Med/Other Pt SpecificInfo: Prescription(s) given Scripts Cephalexin (Keflex) 500 Mg Cap 500 MG PO Q12H for Infection for 10 Days, #20 CAP 0 Refills Prov: Gricelda Metz 05/13/17 Disposition: 01 DISCHARGE HOME Condition: Stable Gricelda Metz May 13, 2017 13:16
--- NOTE | 2017-05-13 13:16 | PD ---
Physical Exam Time Seen by Provider: 13:14 REA Mccall has evaluated the patient, limited Ibarra act and cleared the patient for discharge. Data Data Last Documented VS Vital Signs Date Time Temp Pulse Resp B/P (MAP) Pulse Ox O2 Delivery O2 Flow Rate FiO2 05/13/17 10:00 92 18 170/74 (106) Room Air 05/12/17 19:36 96 05/12/17 13:23 97.8 Orders Orders Electrocardiogram (05/12/17 13:24) Complete Blood Count With Diff (05/12/17 13:24) Comprehensive Metabolic Panel (05/12/17 13:24) Prothrombin Time / Inr (Pt) (05/12/17:24) Act Partial Throm Time (Ptt) (05/12/17:24) Urinalysis - C+S If Indicated (05/12/17 13:24) Iv Access Insert/Monitor (05/12/17 13:24) Ecg Monitoring (05/12/17 13:24) Oximetry (05/12/17 13:24) Sodium Chloride 0.9% Flush (Ns Flush) (05/12/17 13:30) Sodium Chlor 0.9% 1000 Ml Inj (Ns 1000 M (05/12/17 13:24) Call Poison Control (05/12/17 13:24) Drug Screen, Random Urine (05/12/17 13:24) Alcohol (Ethanol) (05/12/17 13:24) Salicylates (Aspirin) (05/12/17 13:24) Psych Screen (05/12/17 13:25) Sodium Chlor 0.9% 1000 Ml Inj (Ns 1000 M (05/12/17 13:45) Sodium Chlor 0.9% 1000 Ml Inj (Ns 1000 M (05/12/17 13:45) Potassium Chloride Eff (K-Lyte Cl Eff) (05/12/17 14:30) Urine Culture (05/12/17 22:47) Tylenol (Acetaminophen) (05/13/17 00:42) Diet Regular Basic (05/13/17 Breakfast) Diet Regular Basic (05/13/17 Lunch) Ed Discharge Order (05/13/17 13:16) Labs Laboratory Tests Test 05/12/17 13:30 05/12/17 22:47 White Blood Count 8.8 TH/MM3 Red Blood Count 4.47 MIL/MM3 Hemoglobin 12.8 GM/DL Hematocrit 37.4 % Mean Corpuscular Volume 83.6 FL Mean Corpuscular Hemoglobin 28.6 PG Mean Corpuscular Hemoglobin Concent 34.2 % Red Cell Distribution Width 15.9 % Platelet Count 257 TH/MM3 Mean Platelet Volume 7.4 FL Neutrophils (%) (Auto) 70.6 % Lymphocytes (%) (Auto) 20.5 % Monocytes (%) (Auto) 8.1 % Eosinophils (%) (Auto) 0.4 % Basophils (%) (Auto) 0.4 % Neutrophils # (Auto) 6.2 TH/MM3 Lymphocytes # (Auto) 1.8 TH/MM3 Monocytes # (Auto) 0.7 TH/MM3 Eosinophils # (Auto) 0.0 TH/MM3 Basophils # (Auto) 0.0 TH/MM3 CBC Comment DIFF FINAL Differential Comment Prothrombin Time 9.6 SEC Prothromb Time International Ratio 0.9 RATIO Activated Partial Thromboplast Time 25.4 SEC Blood Urea Nitrogen 14 MG/DL Creatinine 0.83 MG/DL Random Glucose 84 MG/DL Total Protein 6.8 GM/DL Albumin 3.6 GM/DL Calcium Level 8.5 MG/DL Alkaline Phosphatase 75 U/L Aspartate Amino Transf (AST/SGOT) 74 U/L Alanine Aminotransferase (ALT/SGPT) 43 U/L Total Bilirubin 0.5 MG/DL Sodium Level 132 MEQ/L Potassium Level 2.9 MEQ/L Chloride Level 95 MEQ/L Carbon Dioxide Level 27.9 MEQ/L Anion Gap 9 MEQ/L Estimat Glomerular Filtration Rate 70 ML/MIN Salicylates Level 3.0 MG/DL Acetaminophen Level LESS THAN 2.0 MCG/ML Ethyl Alcohol Level 106 MG/DL Urine Color YELLOW Urine Turbidity HAZY Urine pH 6.5 Urine Specific [place] 1.009 Urine Protein TRACE mg/dL Urine Glucose (UA) NEG mg/dL Urine Ketones NEG mg/dL Urine Occult Blood TRACE Urine Nitrite NEG Urine Bilirubin NEG Urine Urobilinogen LESS THAN 2.0 MG/DL Urine Leukocyte Esterase LARGE Urine RBC 27 /hpf Urine WBC 58 /hpf Urine Squamous Epithelial Cells 4 /hpf Urine Bacteria OCC /hpf Urine Mucus FEW /lpf Microscopic Urinalysis Comment CULTURE INDICATED Urine Opiates Screen NEG Urine Barbiturates Screen NEG Urine Amphetamines Screen NEG Urine Benzodiazepines Screen NEG Urine Cocaine Screen POS Urine Cannabinoids Screen NEG MDM Supervised Visit with ADARSH: No Narrative Course REA Friend has evaluated the patient, sayda abrams and cleared the patient for discharge. Patient contracts safety. Denies suicidal or homicidal ideations. Patient will be provided community resource packet to [facility] for follow-up. Has friends and family for support. Patient was medically cleared by alternate provider prior to psych screening. Patient has been evaluated by psychiatry and and is now cleared for discharge. Diagnosis Primary Impression: Substance induced mood disorder Referrals: [facility] (Out patient) [facility] Primary Care Physician Psychiatrist [facility] Patient Instructions: Abuse of Alcohol (ED), General Instructions, Mood Disorders (ED) Additional Instruction: Contract safety to your self and others Stop Drinking alcohol Follow-up with psychiatry Follow-up with primary care provider Follow-up with J[facility] Return to the emergency department immediately with worsening of symptoms Med/Other Pt SpecificInfo: No Change to Meds, No Meds Exist/No RX given Scripts Cephalexin (Keflex) 500 Mg Cap 500 MG PO Q12H for Infection for 10 Days, #20 CAP 0 Refills Prov: Gricelda Metz 05/13/17 Disposition: 01 DISCHARGE HOME Condition: Stable Jesica Johnson May 13, 2017 13:16
--- NOTE | 2017-05-13 14:30 | EKG ---
Date Performed: 05/12/2017 Time Performed: 13:39:33 PTAGE: 61 years EKG: Sinus rhythm WITH OCCASIONAL SUPRAVENTRICULAR PREMATURE COMPLEXES BORDERLINE ECG PREVIOUS TRACING : 02/13/2017 21.30 Compared to prior tracing no significant change DOCTOR: Osman Senior Interpretating Date/Time 05/13/2017 14:23:07
[2017-05-13 15:18] VITALS: BP 170/74; PULSE 92; RESP 18
== END 2017-05-13 16:01 | disposition home or self-care (01) ==
LOC: NEPE 12:45 → NEPJ 05-13 16:01
DX: F19.94 Other psychoactive substance use, unspecified with psychoactive substance-induced mood disorder (principal); N39.0 Urinary tract infection, site not specified; R31.9 Hematuria, unspecified; E87.6 Hypokalemia; R94.31 Abnormal electrocardiogram [ECG] [EKG]; I10 Essential (primary) hypertension; E78.00 Pure hypercholesterolemia, unspecified; F17.200 Nicotine dependence, unspecified, uncomplicated; Z79.899 Other long term (current) drug therapy; Z79.82 Long term (current) use of aspirin; Z86.59 Personal history of other mental and behavioral disorders; Z87.39 Personal history of other diseases of the musculoskeletal system and connective tissue
CPT/HCPCS: 80053; 80307; 81001; 85025; 85610; 85730; 87086; 93005; 96360; 99284; J7030

== ENCOUNTER 2017-05-13 16:00 | Emergency (ER) | payer MEDICAID, MEDICARE, OTHER ==
[~2017-05-13 16:00] MED LIST changes: -AMLO10 PO; -ATEN100T PO; +CEPH-460 PO; -IBUP1TAB7 PO; -LISI10TA3 PO
[2017-05-13 16:01] VITALS: BP 198/96; PULSE 89; RESP 16; TEMP 98.4; O2SAT 98
--- NOTE | 2017-05-13 18:58 | PD ---
HPI Chief Complaint: Depression Time Seen by Provider: 18:49 Travel History International Travel<30 days: No Contact w/Intl Traveler<30days: No Traveled to known affect area: No History of Present Illness HPI 61-year-old female presents to the emergency department with suicidal thoughts. The patient was discharged from [place] psych department earlier today after being seen by the psychiatrist. She returns stating that she wants inpatient psych facility. Has a plan to walk down into moving traffic in the hit by a car. Denies homicidal ideations. Says she is seeing things and hearing voices. Denies EtOH or drug use today. Patient was given a prescription for Keflex for UTI, earlier when she was discharged, and has not filled the prescription. Denies other medical emergent complaints. Denies chest pain, shortness of breath, abdominal pain, nausea, vomiting. Denies fevers. No known aggravating or alleviating factors. No known allergies. No other modifying factors or associated signs and symptoms. PFSH Past Medical History Hx Anticoagulant Therapy: Yes (BABY ASPIRIN) Anxiety: Yes Depression: Yes Cancer: No Cardiovascular Problems: No High Cholesterol: Yes Diabetes: No Diminished Hearing: No Endocrine: No Headaches: Yes (Patient stated she has headaches suboccipital in nature) Hypertension: Yes Immune Disorder: No Musculoskeletal: Yes (LEG PAIN) Psychiatric: Yes (Alcohol detoxification) Immunizations Current: Yes Seizures: No Menopausal: Yes Past Surgical History Abdominal Surgery: Yes AICD: No Appendectomy: Yes Arteriovenous Shunt: No Cardiac Surgery: Yes (aorta BYPASS) Ear Surgery: No Endocrine Surgery: No Eye Surgery: No Genitourinary Surgery: No Gynecologic Surgery: No Insulin Pump: No Joint Replacement: No Oral Surgery: No Pacemaker: No Tonsillectomy: Yes Other Surgery: Yes Social History Alcohol Use: Yes Tobacco Use: Yes (1 PPD) Substance Use: Yes Allergies-Medications (Allergen,Severity, Reaction): Coded Allergies: No Known Allergies (Unverified Adverse Reaction, Unknown, 05/12/17) Reported Meds & Prescriptions Reported Meds & Active Scripts Active Keflex (Cephalexin) 500 Mg Cap 500 Mg PO Q12H 10 Days Gnp Vitamin B-1 (Thiamine HCl) 100 Mg Tab 100 Mg PO DAILY 30 Days Folic Acid 1 Mg Tablet 1 Mg PO DAILY 30 Days Trazodone (Trazodone HCl) 50 Mg Tab 150 Mg PO HS 30 Days Escitalopram (Escitalopram Oxalate) 20 Mg Tab 20 Mg PO DAILY 30 Days Aspirin Low Strength (Aspirin) 81 Mg Chew 81 Mg CHEW DAILY 30 Days Lipitor (Atorvastatin Calcium) 10 Mg Tab 10 Mg PO HS 30 Days Review of Systems Except as stated in HPI: all other systems reviewed are Neg Physical Exam Narrative GENERAL: Well-nourished, well-developed female patient, in no acute distress; disheveled SKIN: Warm and dry. HEAD: Atraumatic. Normocephalic. EYES: Pupils equal and round. ENT: Mucosa pink and moist. NECK: Supple. Trachea midline. CARDIOVASCULAR: Regular rate and rhythm. No murmur appreciated. RESPIRATORY: No accessory muscle use. Clear to auscultation. Breath sounds equal bilaterally. GASTROINTESTINAL: Abdomen soft, non-tender, nondistended. Hepatic and splenic margins not palpable. Bowel sounds are active 4 quadrants. MUSCULOSKELETAL: No obvious deformities. No clubbing. No cyanosis. No edema. BACK: No CVA tenderness. NEUROLOGICAL: Awake and alert. Oriented 3. No obvious cranial nerve deficits. Motor grossly within normal limits. Normal speech. Moves all extremities. 5/5 strength to all extremities. PSYCHIATRIC: No delusional thought processes. No hallucinations. Data Data Last Documented VS Vital Signs Date Time Temp Pulse Resp B/P (MAP) Pulse Ox O2 Delivery O2 Flow Rate FiO2 05/13/17 16:01 98.4 89 16 198/96 (130) 98 Orders Orders Psych Screen (05/13/17 18:58) Cephalexin (Keflex) (05/13/17 19:00) MDM Medical Decision Making Medical Screen Exam Complete: Yes Emergency Medical Condition: Yes Medical Record Reviewed: Yes Differential Diagnosis Malingering, medical clearance for psych evaluation, suicidal threat, substance induced mood disorder Narrative Course 61-year-old female was just discharged earlier today after being evaluated by psychiatry here at [place]. She returns voluntarily with a plan and a threat of suicide. I reviewed labs that were drawn yesterday and the CBC is unremarkable. Coags unremarkable. Potassium was 2.9 and replaced with 50 mEq of KCL. Otherwise CMP is unremarkable. Urine showed signs of infection and the patient was given a prescription for Keflex which she has not filled. She was positive for cocaine. I do not feel it is necessary to redraw labs at this time. Keflex ordered for UTI. Patient is medically cleared for psychiatric evaluation. Diagnosis Primary Impression: Medical clearance for psychiatric admission Condition: Stable Jesica Johnson [facility] May 13, 2017 18:58
[2017-05-13] MEDS ORDERED: CEPHALEXIN MONOHYDRATE 500 MG CAP PO ONE (19:00)
[2017-05-13 20:04] VITALS: BP 116/50; PULSE 91; RESP 16; O2SAT 94
[2017-05-14 06:08] VITALS: BP 161/78; PULSE 99; RESP 18
--- NOTE | 2017-05-14 09:51 | PD ---
Physical Exam Time Seen by Provider: 09:45 Data Data Last Documented VS Vital Signs Date Time Temp Pulse Resp B/P (MAP) Pulse Ox O2 Delivery O2 Flow Rate FiO2 05/14/17 06:08 99 18 161/78 (105) Room Air 05/13/17 20:04 94 05/13/17 16:01 98.4 Orders Orders Psych Screen (05/13/17 18:58) Cephalexin (Keflex) (05/13/17 19:00) Diet Regular Basic (05/14/17 Breakfast) MDM Medical Record Reviewed: Yes Supervised Visit with ADARSH: No Narrative Course Please see previous provider's notes. This patient has been cleared by the psychiatric department. She has no medical complaints that would warrant additional hospitalization. She is stable for discharge. Diagnosis Primary Impression: Medical clearance for psychiatric admission Disposition: 01 DISCHARGE HOME Condition: Stable Christopher Mcwilliams May 14, 2017 09:51
[2017-05-14 10:21] VITALS: BP 161/78; PULSE 99; RESP 18
== END 2017-05-14 11:21 | disposition home or self-care (01) ==
LOC: NEPJ 16:00
DX: F32.9 Major depressive disorder, single episode, unspecified (principal); F41.9 Anxiety disorder, unspecified; E78.00 Pure hypercholesterolemia, unspecified; N39.0 Urinary tract infection, site not specified; I10 Essential (primary) hypertension
CPT/HCPCS: 99284

== ENCOUNTER 2017-05-19 14:07 | Emergency (ER) | payer OTHER ==
[~2017-05-19 14:07] MED LIST changes: -CYMB60CA PO; -WELLTAB39 PO
[2017-05-19 14:50] VITALS: BP 127/80; PULSE 87; RESP 20; TEMP 98.2; O2SAT 99
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
[2017-05-19 15:33] LABS: AUTOMATED NEUTROPHIL # 6.8 TH/MM3 (1.8-7.7); BASOPHIL # 0.1 TH/MM3 (0-0.2); BASOPHIL % 0.8 % (0.0-2.0); EOSINOPHIL # 0.2 TH/MM3 (0-0.4); EOSINOPHIL % 1.7 % (0.0-4.0); HEMATOCRIT 42.7 % (35.0-46.0); HEMO FLAGS DIFF FINAL; LYMPH % 31.1 % (9.0-44.0); LYMPHOCYTE # 3.7 TH/MM3 (1.0-4.8); MEAN CORPUSCULAR HEMOGLOBIN 28.8 PG (27.0-34.0); MEAN CORPUSCULAR HGB CONC 33.9 % (32.0-36.0); MONO % 8.8 % (0.0-8.0); NEUT % 57.6 % (16.0-70.0); PLATELET COUNT 289 TH/MM3 (150-450); RED BLOOD COUNT 5.02 MIL/MM3 (4.00-5.30); RED CELL DISTRIBUTION WIDTH 16.5 % (11.6-17.2); WHITE BLOOD COUNT 11.8 TH/MM3 (4.0-11.0)
[2017-05-19 15:52] LABS: ACETAMINOPHEN LESS THAN 2.0 MCG/ML (10.0-30.0); ALCOHOL 212 MG/DL (0-5); ALKALINE PHOSPHATASE 82 U/L (45-117); ALT (GPT) 23 U/L (10-53); ANION GAP 14 MEQ/L (5-15); AST (GOT) 17 U/L (15-37); BICARBONATE 23.7 MEQ/L (21.0-32.0); BLOOD UREA NITROGEN 7 MG/DL (7-18); CHLORIDE 92 MEQ/L (98-107); GLOMERULAR FILTRATION RATE 66 ML/MIN (>89); SODIUM (NA) 130 MEQ/L (136-145); TOTAL BILIRUBIN ADULT 0.3 MG/DL (0.2-1.0)
[2017-05-19 15:54] LABS: POTASSIUM 2.8 MEQ/L (3.5-5.1)
[2017-05-19] MEDS ORDERED: NS + KCL 20 MEQ INJ 1,000 ML IV SCH (16:15)
[2017-05-19] MEDS ORDERED: POTASSIUM CHLOR 20 MEQ PREMIX 100 ML IV ONE (16:15)
[2017-05-19] MEDS ORDERED: POTASSIUM CHLORIDE 20 MEQ CONTROLLED RELEASE TAB PO ONE (16:15)
[2017-05-19 16:59] VITALS: BP 107/62; PULSE 82; RESP 16; O2SAT 93
[2017-05-19 23:32] VITALS: BP 138/77; PULSE 90; RESP 18; O2SAT 97
[2017-05-20 02:16] VITALS: BP 173/86; PULSE 93; RESP 18
[2017-05-20 06:23] VITALS: BP 184/81; PULSE 84; RESP 17
[2017-05-20 11:25] VITALS: BP 180/68; PULSE 97; RESP 18; O2SAT 95
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
--- NOTE | 2017-05-20 14:09 | PD ---
Physical Exam Date Seen by Provider: May 20, 2017 Time Seen by Provider: 14:05 Data Data Last Documented VS Vital Signs Date Time Temp Pulse Resp B/P (MAP) Pulse Ox O2 Delivery O2 Flow Rate FiO2 05/20/17 13:59 05/20/17 11:25 97 18 95 Room Air 05/19/17 14:50 98.2 Orders Orders Complete Blood Count With Diff (05/19/17 15:05) Comprehensive Metabolic Panel (05/19/17 15:05) Psych Screen (05/19/17 15:05) Drug Screen, Random Urine (05/19/17 15:05) Alcohol (Ethanol) (05/19/17 15:05) Salicylates (Aspirin) (05/19/17 15:05) Tylenol (Acetaminophen) (05/19/17 15:05) Potassium Chloride (Kcl) (05/19/17 16:15) Ns + Kcl 20 Meq Inj (Ns + Kcl 20 Meq Inj (05/19/17 16:15) Potassium Chlor 20 Meq Premix (Kcl 20 Me (05/19/17 16:15) ^ Straight Catheter (05/19/17 16:53) Diet Regular Basic (05/20/17 Breakfast) Diet Regular Basic (05/20/17 Lunch) Labs Laboratory Tests Test 05/19/17 15:00 05/19/17 16:58 White Blood Count 11.8 TH/MM3 Red Blood Count 5.02 MIL/MM3 Hemoglobin 14.5 GM/DL Hematocrit 42.7 % Mean Corpuscular Volume 85.0 FL Mean Corpuscular Hemoglobin 28.8 PG Mean Corpuscular Hemoglobin Concent 33.9 % Red Cell Distribution Width 16.5 % Platelet Count 289 TH/MM3 Mean Platelet Volume 7.2 FL Neutrophils (%) (Auto) 57.6 % Lymphocytes (%) (Auto) 31.1 % Monocytes (%) (Auto) 8.8 % Eosinophils (%) (Auto) 1.7 % Basophils (%) (Auto) 0.8 % Neutrophils # (Auto) 6.8 TH/MM3 Lymphocytes # (Auto) 3.7 TH/MM3 Monocytes # (Auto) 1.0 TH/MM3 Eosinophils # (Auto) 0.2 TH/MM3 Basophils # (Auto) 0.1 TH/MM3 CBC Comment DIFF FINAL Differential Comment Blood Urea Nitrogen 7 MG/DL Creatinine 0.87 MG/DL Random Glucose 99 MG/DL Total Protein 6.8 GM/DL Albumin 3.5 GM/DL Calcium Level 8.6 MG/DL Alkaline Phosphatase 82 U/L Aspartate Amino Transf (AST/SGOT) 17 U/L Alanine Aminotransferase (ALT/SGPT) 23 U/L Total Bilirubin 0.3 MG/DL Sodium Level 130 MEQ/L Potassium Level 2.8 MEQ/L Chloride Level 92 MEQ/L Carbon Dioxide Level 23.7 MEQ/L Anion Gap 14 MEQ/L Estimat Glomerular Filtration Rate 66 ML/MIN Salicylates Level 4.5 MG/DL Acetaminophen Level LESS THAN 2.0 MCG/ML Ethyl Alcohol Level 212 MG/DL Urine Opiates Screen NEG Urine Barbiturates Screen NEG Urine Amphetamines Screen NEG Urine Benzodiazepines Screen NEG Urine Cocaine Screen POS Urine Cannabinoids Screen NEG MDM Medical Record Reviewed: Yes Supervised Visit with ADARSH: No Narrative Course Patient seen previously and medically cleared to see psych. Under Ibarra act. Seen by psychiatrist today and Ibarra act was lifted; not felt to be a threat to herself or others at this time.. She will be transported from [place] to [facility] with security. She is ambulatory, stable for discharge. Calm, cooperative. Discharged with instructions for hypokalemia. Stable for outpatient follow-up. Diagnosis Primary Impression: Hypokalemia Patient Instructions: General Instructions, Hypokalemia (ED), Abuse of Alcohol (ED) Departure Forms: Tests/Procedures Additional Instruction: Contract for safety. Patient to be transported to [facility] for detox. Return to ED as needed. Disposition: 01 DISCHARGE HOME Condition: Stable Thea Talamantes May 20, 2017 14:09
== END 2017-05-20 14:09 | disposition home or self-care (01) ==
LOC: NEPD 14:07 → NEPJ 05-20 14:09
DX: E87.6 Hypokalemia (principal); F41.9 Anxiety disorder, unspecified; E78.00 Pure hypercholesterolemia, unspecified; I10 Essential (primary) hypertension; F17.200 Nicotine dependence, unspecified, uncomplicated; Z79.82 Long term (current) use of aspirin; Z79.899 Other long term (current) drug therapy
CPT/HCPCS: 80053; 80307; 85025; 96365; 96366; 99284; J3480